=== PATIENT | female | born 1955 | race Caucasian/White ===

== ENCOUNTER 2022-09-17 07:33 | Inpatient (IN) | payer BC, SELFPAY ==
[2022-09-17] VITALS (26 sets, daily range): BP systolic 108–161; BP diastolic 71–111; PULSE 68–95; RESP 16–21; TEMP 36.6–37.7; O2SAT 87–100; BMI 27.9
--- NOTE | ~2022-09-17 | MR_ITS ---
EXAMINATION: MR lumbar spine wo/w con DATE: 09/18/2022 16:59 INDICATION: Back pain. Lumbar radiculopathy. TECHNIQUE: Magnetic resonance imaging (MRI) of the lumbar spine was performed without and with 15 mL MultiHance intravenous contrast. COMPARISON: Lumbar spine CT 09/17/2022 FINDINGS: Bone alignment is normal. Vertebral body heights are normal. There is mildly decreased disc height at L2-L3 and L3-L4, moderately decreased disc height at L4-L5, and mildly decreased disc heig ht at L5-S1. The distal spinal cord signal intensity is normal. The conus medullaris is at L1. The fo llowing disc levels are specifically discussed: L1-L2: The disc does not extend beyond the endplate margin. There is mild bilateral facet joint osteo arthritis. There is no neural foraminal stenosis. There is no central canal stenosis. L2-L3: The disc is bulging. There is mild bilateral facet joint osteoarthritis. There is mild bilater al neural foraminal stenosis. There is mild central canal stenosis. L3-L4: The disc is bulging. In the left lateral recess at the pedicular and interpedicular levels of L3, there is a 10 x 10 x 17 mm nonenhancing mass with mass effect on the exiting left L3 nerve root, likely a sequestered disc. There is mild bilateral facet joint osteoarthritis. There is mild bilatera l neural foraminal stenosis. There is mild central canal stenosis. There is severe stenosis of left l ateral recess at the left L3 infrapedicular level. L4-L5: The disc is bulging and has an annular fissure. There is severe right and moderate left facet joint osteoarthritis. There is mild bilateral neural foraminal stenosis. There is mild central canal stenosis. L5-S1: The disc is bulging and has an annular fissure. There is mild right and moderate left facet quintin int osteoarthritis. There is mild bilateral neural foraminal stenosis. There is mild central canal st enosis. IMPRESSION: 1. Mass in the left lateral recess at the L3 pedicular and infrapedicular levels with mass effect on the left L3 nerve root, likely a sequestered disc. 2. Moderate lumbar spondylosis. Reviewed, dictated and finalized at location E. R MANAGEMENT SPECIALIST IMPRESSION: 1. Mass in the left lateral recess at the L3 pedicular and infrapedicular level s with mass effect on the left L3 nerve root, likely a sequestered disc. 2. Moderate lumbar spondylosis.
--- NOTE | ~2022-09-17 | XR_ITS ---
EXAMINATION: XR femur LT min 2V DATE: 09/17/2022 08:53 INDICATION: Left thigh spasms and cramping. TECHNIQUE: 2 views of left femur on 4 radiographs were obtained. COMPARISON: None. FINDINGS: Bone alignment is normal. No fracture. There is mild left hip osteoarthritis. No knee joint effusion. IMPRESSION: 1. Mild left hip osteoarthritis. Reviewed, dictated and finalized at location A. CTOR OF SALES
--- NOTE | ~2022-09-17 | CT_ITS ---
EXAMINATION: CT lumbar spine wo con DATE: 09/17/2022 08:45 INDICATION: Low back pain. TECHNIQUE: Computed tomography (CT) of the lumbar spine was performed without intravenous contrast. A utomated exposure control and iterative reconstruction technique were employed. The dose-length produ ct was 698.03 mGy-cm. COMPARISON: None FINDINGS: Bone alignment is normal. Vertebral body heights are normal. There is mildly decreased disc height at L2-L3 and L3-L4, moderately decreased disc height at L4-L5, and mildly decreased disc heig ht at L5-S1. The following disc levels are specifically discussed: L1-L2: The disc does not extend beyond the endplate margin. There is mild bilateral facet joint osteo arthritis. There is no neural foraminal stenosis. There is no central canal stenosis. L2-L3: The disc is bulging. There is mild bilateral facet joint osteoarthritis. There is mild bilater al neural foraminal stenosis. There is mild central canal stenosis. L3-L4: The disc is bulging. There is moderate right and mild left facet joint osteoarthritis. There i s mild bilateral neural foraminal stenosis. There is mild central canal stenosis. L4-L5: The disc is bulging. There is severe right and moderate left facet joint osteoarthritis. There is mild bilateral neural foraminal stenosis. There is mild central canal stenosis. L5-S1: The disc is bulging. There is severe bilateral facet joint osteoarthritis. There is mild bilat eral neural foraminal stenosis. There is mild central canal stenosis. IMPRESSION: 1. Moderate lumbar spondylosis. Reviewed, dictated and finalized at location A. K JACK DEALER
--- NOTE | ~2022-09-17 | XR_ITS ---
EXAMINATION: XR fluoroscopy no charge DATE: 09/19/2022 13:31 INDICATION: Left L2-L3 herniated nucleus pulposus. TECHNIQUE: A single lateral intraoperative fluoroscopic view of the lumbar spine was obtained. I was not present. Fluoroscopy exposure time was 2 seconds. COMPARISON: Lumbar spine MRI 09/18/2022 FINDINGS: There is a probe overlying the posterior elements at L2-L3. There is moderate lumbar spondy losis. IMPRESSION: 1. Marker at L2-L3. Reviewed, dictated and finalized at location A. LCHAIR VAN OPERATOR FIRST RESPONDER IMPRESSION: 1. Marker at L2-L3.
[2022-09-17] MEDS: KETOROLAC 30 MG/ML VIAL (*BKC) IV PUSH (08:23)
[2022-09-17 08:30] LABS: Basophils Percent Auto 0.6 % (0.2-1.2); Eosinophils Percent Auto 0.4 % (0-4.4); Hematocrit 35.1 % (37.0-47.0); Hemoglobin 10.8 g/dL (12.0-15.0); Immature Granulocyte Absolute 0.01 K/mm3 (0.00-0.031); Immature Granulocyte Percent A 0.2 % (0-0.5); Lymphocytes Absolute Auto 0.91 K/mm3 (0.9-3.2); Lymphocytes Percent Auto 18.2 % (18.3-44.2); Mean Corpuscular HGB Conc 30.8 g/dl (32-36); Mean Corpuscular Hemoglobin 22.2 pg (26-34); Mean Corpuscular Volume 72.2 fl (80-100); Mean Platelet Volume 10.8 fl (7.4-10.4); Monocytes Absolute Auto 0.4 K/mm3 (0.1-0.6); Monocytes Percent Auto 7.2 % (2.6-8.5); Neutrophils Absolute Auto 3.7 K/mm3 (1.3-6.7); Neutrophils Percent Auto 73.4 % (45.5-73.1); Platelet Count Result 282 k/mm3 (150-375); Red Blood Count 4.86 M/mm3 (4.2-5.4); Red Cell Distribution Width 16.6 % (11.5-14.5)
[2022-09-17 08:41] LABS: Alanine Aminotransferase 18 U/L (6-35); Albumin Level 4.6 g/dL (3.5-5.1); Alkaline Phosphatase 100 U/L (38-126); Anion Gap 11 mmol/L (8-16); Aspartate Amino Transferase 33 U/L (14-36); Bilirubin,Total 0.7 mg/dL (0.2-1.3); Blood Urea Nitrogen 10 mg/dL (7-17); Calcium 9.4 mg/dL (8.4-10.2); Carbon Dioxide 22 mmol/L (22-30); Chloride 101 mmol/L (98-107); Creatine Kinase 193 U/L (30-135); Estimated CRCL calculation 75 ml/min; Estimated Glomerular Filt Rate > 60; Glucose 98 mg/dL (65-110); Sodium 134 mmol/L (137-145)
[2022-09-17] MEDS: diazePAM INJ (*CRX) 10 MG/2 ML SYRINGE 5 MG IV PUSH (09:46)
--- NOTE | 2022-09-17 11:13 | PC.NURSE ---
Patient report received from DANILO Whitaker. All questions answered and care of patient assumed.
[2022-09-17] MEDS: MORPHINE SULFATE (*CRX) 2 MG/ML INJ IV PUSH (11:43)
--- NOTE | 2022-09-17 12:10 | ED.GENADULT ---
HPI - General Adult General Chief complaint: Extremity Injury, Lower Stated complaint: Lower Extremity Pain Time Seen by Provider: 09/17/22 07:38 Source: RN notes reviewed History of Present Illness HPI narrative: Patient presents emergency department from home for left leg pain. Patient states symptoms began yesterday. States she noted pain in her left thigh that described as cramping in nature the pain radiates down her left leg as well as into her left buttocks. She states that no matter what she does she cannot get comfortable in the legs been in severe pain she states that she did take ajet-dly-slcejkf medication for the pain last night as well smokes marijuana at 2 AM she denies any trauma or injury she denies any history of back or leg pain she denies any fevers or chills abdominal pain nausea vomiting bowel or bladder incontinence numbness or weakness of the extremity or any other symptoms Related Data Home Medications Medication Instructions Recorded Confirmed amlodipine 5 mg tablet 5 mg PO BID 09/26/20 03/20/22 aspirin 81 mg chewable tablet 81 mg PO DAILY 09/26/20 03/20/22 (Inder Chewable Low Dose Aspirin) cyanocobalamin (vitamin B-12) 1,000 mcg PO DAILY 09/26/20 03/20/22 1,000 mcg tablet (Vitamin B-12) metoprolol tartrate 50 mg tablet 50 mg PO BID 09/26/20 03/20/22 multivitamin 1 tablet PO DAILY 09/26/20 03/20/22 sertraline 100 mg tablet 100 mg PO DAILY 09/26/20 03/20/22 ezetimibe 10 mg tablet 10 mg PO 03/20/22 03/20/22 Allergies Allergy/AdvReac Type Severity Reaction Status Date / Time No Known Allergies Allergy Unknown Verified 09/17/22 07:58 Review of Systems Review of Systems: Gen.: Denies fevers or chills ENT: Denies congestion Respiratory: Denies shortness of breath or cough CV: Denies chest pain or palpitations GI: Denies abdominal pain nausea, emesis or diarrhea denies incontinence Musculoskeletal: See HPI Neuro: Denies numbness, tingling, weakness or focal weakness Skin: Denies rash Except as documented, all other systems reviewed and negative PMFSH Past Medical History Medical History KO positive Anxiety Inflammatory arthritis Statin myopathy Surgical History Surgical History History of ankle surgery Family History Family History Mother Heart disease Father Brain aneurysm Social History Social History Smoking status: Former smoker Alcohol intake: current Exam Narrative: APPEARANCE: No acute distress, nontoxic, resting in bed Eyes: EOMI HEENT: Normocephalic, atraumatic, CV: Regular rate and rhythm without murmur RESPIRATORY: No respiratory distress. Clear to auscultation bilaterally. Abdomen: Soft and nontender, no rebound or guarding MUSCULOSKELETAl: Moves all extremities, no clubbing cyanosis or edema Back: No midline lumbar tenderness to palpation or step-off, no midline tenderness to palpation, tender to palpation over left piriformis NEURO: Awake and alert. Following commands, speech normal, no focal deficits, muscle strength 5 out of 5 bilateral lower extremities, bilateral patellar reflex 2+ SKIN:: Warm, dry. Normal Color no rash or lesions Course Course Emergency Course: Patient initially given Toradol if continued pain then given Valium and the morphine continues to have pain in the left leg. Patient attempted to get up and ambulate was only able to take a few steps and then had to stop secondary to pain will admit at this time To Dr Elder presentation work-up agrees with admission to hospitalist service Discussed with Dr. Carbajal agrees with consult Discussed with patient and family results of workup and diagnosis. Discussed need for admission. Patient and family understand and agree to current treatment
--- NOTE | 2022-09-17 13:07 | ADMGEN ---
This patient, Belen Chapman, was admitted to 2 Medical Room 240-01. Patient/family oriented to hospital policies and general routines including ID bracelet, bed and alarms, visiting hours, pain management, procedures, bathroom and other care routines, personal items, smoking policy, room service/diet, and visiting hours. Information on how to activate the Rapid Response Team has been discussed. Patient/Family are encouraged to report perceived risks to care and to ask questions if they do not understand what they are told or what they should do.
[2022-09-17 13:32] LABS: Influenza A QL RT-PCR Negative (Negative); Influenza B QL RT-PCR Negative (Negative); SARS-CoV-2 RNA PCR Negative
[2022-09-17] MEDS: oxyCODONE/ACETAMINOPHEN (*CRX) 5-325 MG TABLET 1 TABLET PO ×2 (14:37→20:13)
--- NOTE | 2022-09-17 16:42 | PM.IMHP ---
H&P: HPI History of Present Illness Date/Time: 09/17/22 16:42 Chief Complaint: L Thigh pain Narrative: Pt states she is having severe left leg pain worse in her thigh radiating to her left buttock worse when she walks, pt denies any fall or trauma or twisting Pt states she has been quite sedentary. Pt tried OTC without any help severe spasms in the left thigh Review of Systems Review of Systems: severe spasms in L thigh radiates to L buttock PMFSH Past Medical History Medical History KO positive Anxiety Inflammatory arthritis Statin myopathy Surgical History Surgical History History of ankle surgery Family History Family History Mother Heart disease Father Brain aneurysm Social History Social History Smoking packs per day: 0.25 Smoking cigarettes per day: 5.0 Smoking status: Current every day smoker Tobacco type: cigarettes Alcohol intake: former Substance use type: marijuana Other substance usage details: gummies and smoking Last use: 09/17/22 Lack of Transportation: No Lack of Food: Never True Current Housing: I Have Housing Concerned About Future Housing: No Difficulty Paying Gas/Electric Bills: No Difficulty Paying for Meds: No Currently Unemployed: No Education: High School Diploma/GED Difficulty w/ Childcare or Family Care: No Spiritual care concerns: No Meds Home Medications and Allergies Home Medications Medication Instructions Recorded Confirmed Type amlodipine 5 mg tablet 5 mg PO BID 09/26/20 09/17/22 History aspirin 81 mg chewable tablet 81 mg PO DAILY 09/26/20 09/17/22 History (Inder Chewable Low Dose Aspirin) metoprolol tartrate 50 mg tablet 50 mg PO BID 09/26/20 09/17/22 History sertraline 100 mg tablet 100 mg PO DAILY 09/26/20 09/17/22 History cholecalciferol (vitamin D3) 50 50 mcg PO DAILY 09/17/22 09/17/22 History mcg (2,000 unit) capsule (Vitamin D3) Allergies Allergy/AdvReac Type Severity Reaction Status Date / Time Vhgcmzx-VYV-[id number] Reductase AdvReac Weakness Verified 09/17/22 13:13 Inhibitor Vital Signs Vital Signs - 24 hr 09/17/22 07:37 09/17/22 07:44 09/17/22 07:45 Temperature 36.9 C Pulse Rate 84 Respiratory Rate 21 H Blood Pressure 140/89 Pulse Oximetry 100 100 100 Oxygen Delivery Room Air 09/17/22 08:17 09/17/22 08:30 09/17/22 08:31 Temperature Pulse Rate 78 Respiratory Rate Blood Pressure 161/94 H Pulse Oximetry 100 99 98 Oxygen Delivery 09/17/22 08:32 09/17/22 08:54 09/17/22 09:07 Temperature Pulse Rate Respiratory Rate Blood Pressure Pulse Oximetry 100 100 99 Oxygen Delivery 09/17/22 09:15 09/17/22 09:16 09/17/22 09:31 Temperature Pulse Rate Respiratory Rate Blood Pressure 151/102 H Pulse Oximetry 93 100 87 L Oxygen Delivery 09/17/22 09:32 09/17/22 09:33 09/17/22 10:34 Temperature Pulse Rate 81 Respiratory Rate Blood Pressure 108/74 136/71 Pulse Oximetry 94 100 97 Oxygen Delivery 09/17/22 10:46 09/17/22 10:47 09/17/22 11:35 Temperature Pulse Rate Respiratory Rate Blood Pressure 157/85 H Pulse Oximetry 100 96 100 Oxygen Delivery 09/17/22 11:38 09/17/22 11:45 09/17/22 12:21 Temperature Pulse Rate 95 Respiratory Rate 19 Blood Pressure 147/111 H Pulse Oximetry 98 100 100 Oxygen Delivery 09/17/22 12:30 09/17/22 12:31 09/17/22 16:14 Temperature 37.7 C H Pulse Rate 78 Respiratory Rate 18 Blood Pressure 160/84 H 125/80 Pulse Oximetry 100 100 99 Oxygen Delivery H&P: Results Labs Labs: Short CBC 09/17/22 Range/Units 08:09 WBC 5.0 (4.5-10.0) K/mm3 Hgb 10.8 L (12.0-15
--- NOTE | 2022-09-17 17:16 | WPDNEUROSGCN ---
Assessment and Plan Assessment and plan (1) Lumbar spondylosis: Code(s): M47.816 - Spondylosis without myelopathy or radiculopathy, lumbar region Status: Acute (2) Foraminal stenosis of lumbosacral region: Code(s): M48.07 - Spinal stenosis, lumbosacral region Status: Acute (3) Radicular pain of left lower extremity: Code(s): M54.10 - Radiculopathy, site unspecified Status: Acute Plan Ms. Chapman is a 66-year-old female with back and left lower extremity pain that seems to be radiculopathy and may be related to a nerve pinched in her back, perhaps L5 or S1. It could also be L4. The CT scan is insufficient to examine the soft tissues with enough detail to determine the cause of the radiculopathy or any potential compression on any of these nerves. Therefore recommend an MRI of the lumbar spine to better evaluate this problem. We will order that and make further recommendations after I have seen it. Decadron could be helpful in the meantime to try to reduce inflammation in the nerve and potentially mitigate her symptoms. Physical and occupational therapy should be involved in her care. If she there is a simple decompressive surgery to confidently recommend to her that we may do at this admission if she cannot be made ambulatory with relative pain control. Review of Systems Review of Systems: Patient denies shortness of breath, cough, fever, chills, nausea, vomiting, weight loss, weight gain, chest pain, dysuria. She has back and leg pain as above. She has myalgias and arthralgias. Review of systems is otherwise negative except as noted elsewhere on 12 systems. [facility] Past Medical History Medical History KO positive Anxiety Inflammatory arthritis Statin myopathy Surgical History Surgical History History of ankle surgery Family History Family History Mother Heart disease Father Brain aneurysm Social History Social History Smoking packs per day: 0.25 Smoking cigarettes per day: 5.0 Smoking status: Current every day smoker Tobacco type: cigarettes Alcohol intake: former Substance use type: marijuana Other substance usage details: gummies and smoking Last use: 09/17/22 Lack of Transportation: No Lack of Food: Never True Current Housing: I Have Housing Concerned About Future Housing: No Difficulty Paying Gas/Electric Bills: No Difficulty Paying for Meds: No Currently Unemployed: No Education: High School Diploma/GED Difficulty w/ Childcare or Family Care: No Spiritual care concerns: No Meds Home Medications and Allergies Home Medications Medication Instructions Recorded Confirmed Type amlodipine 5 mg tablet 5 mg PO BID 09/26/20 09/17/22 History aspirin 81 mg chewable tablet 81 mg PO DAILY 09/26/20 09/17/22 History (Inder Chewable Low Dose Aspirin) metoprolol tartrate 50 mg tablet 50 mg PO BID 09/26/20 09/17/22 History sertraline 100 mg tablet 100 mg PO DAILY 09/26/20 09/17/22 History cholecalciferol (vitamin D3) 50 50 mcg PO DAILY 09/17/22 09/17/22 History mcg (2,000 unit) capsule (Vitamin D3) Allergies Allergy/AdvReac Type Severity Reaction Status Date / Time [id number]-ICA-[id number] Reductase AdvReac Weakness Verified 09/17/22 13:13 Inhibitor Vital Signs Vital Signs - 24 hr 09/17/22 07:37 09/17/22 07:44 09/17/22 07:45 Temperature 98.5 F Pulse Rate 84 Respiratory Rate 21 H Blood Pressure 140/89 Pulse Oximetry 100 100 100 Oxygen Delivery Room Air 09/17/22 08:17 09/17/22 08:30 09/17/22 08:31 Temperature Pulse Rate 78 Respiratory Rate Blood Pressure 161/94 H Pulse Oximetry 100 99 98 Oxygen Delivery 09/17/22 08:32 09/17/22 08:54 09/17/22
[2022-09-17] MEDS: DICLOFENAC SODIUM 1% 100 GM GEL (*BKC) 1 APPLIC TOPICAL ×2 (17:53→20:15)
[2022-09-17] MEDS: amLODIPine BESYLATE 5 MG TABLET PO (17:53)
[2022-09-17] MEDS: CYCLOBENZAPRINE HCL 5 MG TABLET PO (17:54)
[2022-09-17] MEDS: METOPROLOL TARTRATE 50 MG TAB PO (20:13)
[2022-09-18] MEDS: CYCLOBENZAPRINE HCL 5 MG TABLET PO ×3 (01:34→21:06)
[2022-09-18] MEDS: ALPRAZolam (*CRX) 0.25 MG TABLET PO ×2 (01:35→16:12)
[2022-09-18] MEDS: oxyCODONE/ACETAMINOPHEN (*CRX) 5-325 MG TABLET 1 TABLET PO ×3 (04:20→21:04)
[2022-09-18 06:49] VITALS: BP 140/68; PULSE 72; RESP 16; TEMP 37.1; O2SAT 100
[2022-09-18 08:03] VITALS: PULSE 64
[2022-09-18] MEDS: METOPROLOL TARTRATE 50 MG TAB PO ×2 (08:03→21:05)
[2022-09-18] MEDS: ASPIRIN 81 MG CHEWABLE TABLET PO (08:03)
[2022-09-18] MEDS: SERTRALINE HCL 50 MG TABLET 100 MG PO (08:03)
[2022-09-18] MEDS: amLODIPine BESYLATE 5 MG TABLET PO ×2 (08:03→17:03)
[2022-09-18] MEDS: DICLOFENAC SODIUM 1% 100 GM GEL (*BKC) 1 APPLIC TOPICAL ×4 (08:03→21:06)
[2022-09-18] MEDS: CHOLECALCIFEROL 1,000 UNITS TABLET 2000 UNITS PO (08:03)
[2022-09-18] MEDS: ENOXAPARIN 40 MG/0.4 ML SYRINGE SUB-Q (08:04)
[2022-09-18 08:06] LABS: CRP 5.5 mg/dL (<1.0)
[2022-09-18 08:11] LABS: Erythrocyte Sedimentation Rate 98 mm/hr (0-20)
--- NOTE | 2022-09-18 14:19 | PM.IMPN ---
Progress Note: A&P Assessment and Plan (1) Intractable low back pain: Code(s): M54.59 - Other low back pain Status: Acute Assessment and Plan: pt needs to stretch her back gently having alot o f spasms in her left thigh preventing her to stretch her leg and walk On Flexeril oxycodone. Will initiate steroid therapy with Decadron 4 mg q.8 hour Order PT OT to evaluate CT lumbar spine reviewed. Disc bulge noted from L2 to S1. Bilateral facet joint osteoarthritis [id number] to mild bilateral neuroforaminal stenosis in multiple levels with mild central canal stenosis. Neurosurgery consulted. Will further evaluate with MRI lumbar spine. Suspected lumbar radiculopathy which is intractable with muscle spasms (2) Thigh pain: Code(s): M79.659 - Pain in unspecified thigh Status: Acute Assessment and Plan: volteren gel, flexeril and oral percocet and xanax Plan dvt prop lovenox pt has history of lalo positive and anxiety will order esr crp to exclude myopathy ESR CRP came back elevated pt has low grade fever continue to watch maybe due to pain sympathetic response continue to watch Mild anemia no signs of bleeding Mildly elevated CK and 193 Mild left hip osteoarthritis Subjective Date/time seen: 09/18/22 14:19 Interval history: No overnight events. Reports ongoing spasms the left thigh and hip area which are severe prohibiting ambulation Review of Systems Review of Systems: All systems reviewed & are unremarkable except as noted in HPI and below Exam Narrative: APPEARANCE:? No acute distress, nontoxic, resting in bed Eyes: EOMI HEENT: Normocephalic, atraumatic, CV: Regular rate and rhythm without murmur RESPIRATORY: No respiratory distress.? Clear to auscultation bilaterally.? Abdomen: Soft and nontender, no rebound or guarding MUSCULOSKELETAl: Moves all extremities, no clubbing cyanosis or edema Back: Left paraspinal lumbar area tenderness noted. Straight leg raise test negative intermittent muscle spasm during the visit NEURO: Awake and alert. Following commands, speech normal, no focal deficits,? muscle strength 5 out of 5 bilateral lower extremities, bilateral patellar reflex 2+ SKIN:: Warm, dry. Normal Color no rash or lesions Objective Data Vital Signs Vital Signs: Vital Signs - 24 hr 09/17/22 16:14 09/17/22 20:00 09/17/22 23:23 Temperature 99.8 F H 97.8 F Pulse Rate 78 78 68 Respiratory Rate 18 18 16 Blood Pressure 125/80 129/76 Pulse Oximetry 99 99 94 Oxygen Delivery Room Air 09/18/22 06:49 09/18/22 08:03 09/18/22 08:04 Temperature 98.8 F Pulse Rate 72 64 Respiratory Rate 16 Blood Pressure 140/68 Pulse Oximetry 100 Oxygen Delivery Room Air Intake/Output Intake/Output: Intake & Output 09/15/22 09/16/22 09/17/22 09/18/22 23:59 23:59 23:59 23:59 Intake Total 600 Output Total 200 Balance 400 Meds/Results Medications: Active Medications Generic Name Dose Route Start Last Admin Trade Name Freq PRN Reason Stop Dose Admin Alprazolam 0.25 mg 09/17/22 16:57 09/18/22 01:35 Alprazolam (*Crx) 0.25 Mg Tablet PO 0.25 mg TID PRN Administration Anxiety Amlodipine Besylate 5 mg 09/17/22 17:00 09/18/22 08:03 Amlodipine Besylate 5 Mg Tablet PO 5 mg BID BRIJESH Administration Aspirin 81 mg 09/18/22 09:00 09/18/22 08:03 Aspirin 81 Mg Chewable Tablet PO 81 mg DAILY BRIJESH Administration Calcium Carbonate 200 mg 09/18/22 12:32 Calcium Carbonate (Tums) 500 Mg (200 Mg Elemental) PO Q6H PRN Indigestion Cyclobenzaprine HCl 5 mg 09/17/22 16:58 09/18/22 11:00 Cyclobenzaprine Hcl 5 Mg Tablet PO 5 mg Q8H PRN Administration Muscle Spasm Diclofenac Sodium 1 applic 09/17/22 17:00 09/18/22 12:44 Diclofenac Sodium 1% 100 Gm Gel (*Bkc) TOPICAL 1 applic QID BRIJESH Administration Enoxaparin Sodium 40 mg 09/18/22 09:00 09/18/22 08:04 Enoxaparin 40 Mg/0.4 Ml Syringe
[2022-09-18 15:19] VITALS: BP 125/54; PULSE 72; RESP 18; TEMP 36.7; O2SAT 98
[2022-09-18] MEDS: DEXAMETHASONE 4 MG TABLET PO ×2 (16:12→21:05)
[2022-09-18 20:02] VITALS: BP 119/72; PULSE 82; RESP 16; TEMP 36.7; O2SAT 99
[2022-09-18 21:05] VITALS: PULSE 83
[2022-09-19] VITALS (17 sets, daily range): BP systolic 107–146; BP diastolic 53–88; PULSE 4–86; RESP 12–20; TEMP 36.2–36.9; O2SAT 97–100
[2022-09-19] MEDS: oxyCODONE/ACETAMINOPHEN (*CRX) 5-325 MG TABLET 1 TABLET PO (05:15)
[2022-09-19] MEDS: DEXAMETHASONE 4 MG TABLET PO ×2 (05:16→21:16)
[2022-09-19 05:40] LABS: Basophils Percent Auto 0.2 % (0.2-1.2); Hematocrit 33.6 % (37.0-47.0); Hemoglobin 10.6 g/dL (12.0-15.0); Immature Granulocyte Absolute 0.02 K/mm3 (0.00-0.031); Immature Granulocyte Percent A 0.4 % (0-0.5); Lymphocytes Absolute Auto 0.67 K/mm3 (0.9-3.2); Lymphocytes Percent Auto 13.3 % (18.3-44.2); Mean Corpuscular HGB Conc 31.5 g/dl (32-36); Mean Corpuscular Hemoglobin 22.2 pg (26-34); Mean Corpuscular Volume 70.4 fl (80-100); Mean Platelet Volume 10.3 fl (7.4-10.4); Monocytes Absolute Auto 0.2 K/mm3 (0.1-0.6); Monocytes Percent Auto 4.8 % (2.6-8.5); Neutrophils Absolute Auto 4.1 K/mm3 (1.3-6.7); Neutrophils Percent Auto 81.3 % (45.5-73.1); Platelet Count Result 225 k/mm3 (150-375); Red Blood Count 4.77 M/mm3 (4.2-5.4); Red Cell Distribution Width 16.5 % (11.5-14.5); White Blood Count 5.1 K/mm3 (4.5-10.0)
[2022-09-19 05:56] LABS: Alanine Aminotransferase 18 U/L (6-35); Albumin Level 4.5 g/dL (3.5-5.1); Alkaline Phosphatase 90 U/L (38-126); Anion Gap 11 mmol/L (8-16); Aspartate Amino Transferase 25 U/L (14-36); Bilirubin,Total 0.5 mg/dL (0.2-1.3); Blood Urea Nitrogen 11 mg/dL (7-17); Calcium 9.5 mg/dL (8.4-10.2); Carbon Dioxide 21 mmol/L (22-30); Chloride 101 mmol/L (98-107); Estimated CRCL calculation 85 ml/min; Estimated Glomerular Filt Rate > 60; Glucose 115 mg/dL (65-110); Magnesium 2.1 mg/dL (1.6-2.3); Potassium 4.1 mmol/L (3.4-5.0); Sodium 133 mmol/L (137-145)
[2022-09-19 06:53] LABS: Microcytosis 1+ (NORMAL); Platelet Estimate Adequate (Adequate); Schistocytes None Seen (NORMAL)
[2022-09-19] MEDS: amLODIPine BESYLATE 5 MG TABLET PO ×2 (09:31→17:37)
[2022-09-19] MEDS: METOPROLOL TARTRATE 50 MG TAB PO ×2 (09:31→21:16)
[2022-09-19] MEDS: DICLOFENAC SODIUM 1% 100 GM GEL (*BKC) 1 APPLIC TOPICAL ×2 (09:32→21:16)
--- NOTE | 2022-09-19 10:30 | PC.NURSE ---
To OR per ashleigh IV right hand. Report given to Elliott CARRASCO.
--- NOTE | 2022-09-19 10:47 | WPDANESEPPF ---
Anes - Initial Pre Proc Eval Procedure: Operation Date: 09/19/22 15:00 Proposed Procedures p L2-3 Lumbar Microdiscectomy - Jesus Carbajal MD Date/Time: 09/19/22 10:47 Surgeon: Franca Elder MD Pre Op Diagnosis: Intractable Back Pain Patient Data Age: 66 Gender: F Height: 1.68 m Weight: 78.6 kg Last Vital Signs Temp 36.6 C 09/19/22 10:43 Pulse 71 09/19/22 10:43 Resp 16 09/19/22 10:43 BP 146/72 H 09/19/22 10:43 Pulse Ox 100 09/19/22 10:43 O2 Del Method Room Air 09/19/22 10:43 Allergies Allergy/AdvReac Type Severity Reaction Status Date / Time Eleevjg-YFV-[id number] Reductase AdvReac Weakness Verified 09/17/22 13:13 Inhibitor Home Medications Medication Instructions Recorded Confirmed Type amlodipine 5 mg tablet 5 mg PO BID 09/26/20 09/17/22 History aspirin 81 mg chewable tablet 81 mg PO DAILY 09/26/20 09/17/22 History (Inder Chewable Low Dose Aspirin) metoprolol tartrate 50 mg tablet 50 mg PO BID 09/26/20 09/17/22 History sertraline 100 mg tablet 100 mg PO DAILY 09/26/20 09/17/22 History cholecalciferol (vitamin D3) 50 50 mcg PO DAILY 09/17/22 09/17/22 History mcg (2,000 unit) capsule (Vitamin D3) Laboratory Tests 09/19/22 09/19/22 05:11 05:11 WBC 5.1 K/mm3 K/mm3 (4.5-10.0) RBC 4.77 M/mm3 M/mm3 (4.2-5.4) Hgb 10.6 g/dL L g/dL (12.0-15.0) Hct 33.6 % L % (37.0-47.0) MCV 70.4 fl L fl (80-100) MCH 22.2 pg L pg (26-34) MCHC 31.5 g/dl L g/dl (32-36) RDW 16.5 % H % (11.5-14.5) Plt Count 225 k/mm3 k/mm3 (150-375) MPV 10.3 fl fl (7.4-10.4) Immature Gran % (Auto) 0.4 % % (0-0.5) Neut % (Auto) 81.3 % H % (45.5-73.1) Lymph % (Auto) 13.3 % L % (18.3-44.2) [place] % (Auto) 4.8 % % (2.6-8.5) Eos % (Auto) 0.0 % % (0-4.4) Baso % (Auto) 0.2 % % (0.2-1.2) Lymph # (Auto) 0.67 K/mm3 L K/mm3 (0.9-3.2) [place] # (Auto) 0.2 K/mm3 K/mm3 (0.1-0.6) Eos # (Auto) 0.0 K/mm3 K/mm3 (0-0.3) Baso # (Auto) 0.0 K/mm3 K/mm3 (0.0-0.1) Abs Immat Gran (auto) 0.02 K/mm3 K/mm3 (0.00-0.031) Absolute Neuts (auto) 4.1 K/mm3 K/mm3 (1.3-6.7) Absolute Nucleated RBC 0.0 K/mm3 K/mm3 (0.0-0.012) Nucleated RBC % 0.0 % % (0.0-0.2) Platelet Estimate Adequate (Adequate) Microcytosis 1+ (NORMAL) Schistocytes None seen (NORMAL) Sodium 133 mmol/L L mmol/L (137-145) Potassium 4.1 mmol/L mmol/L (3.4-5.0) Chloride 101 mmol/L mmol/L (98-107) Carbon Dioxide 21 mmol/L L mmol/L (22-30) Anion Gap 11 mmol/L mmol/L (8-16) BUN 11 mg/dL mg/dL (7-17) Creatinine 0.60 mg/dL L mg/dL (0.7-1.0) Estim Creat Clear Calc 85 ml/min ml/min Estimated GFR > 60 (59 - ) Glucose 115 mg/dL H mg/dL (65-110) Calcium 9.5 mg/dL mg/dL (8.4-10.2) Magnesium 2.1 mg/dL mg/dL (1.6-2.3) Total Bilirubin 0.5 mg/dL mg/dL (0.2-1.3) AST 25 U/L U/L (14-36) ALT 18 U/L U/L (6-35) Alkaline Phosphatase 90 U/L U/L (38-126) Total Protein 8.0 g/dL g/dL (6.3-8.2) Albumin 4.5 g/dL g/dL (3.5-5.1) Patient hx anesthesia problems: none Family hx anesthesia problems: none Results Review: All pre-operative results and documents have been reviewed as part of the pre-operative evaluation. [facility] Past Medical History Medical History KO positive Anxiety Inflammatory arthritis Statin myopathy Surgical History Surgical History History of ankle surgery Family History Family History Mother Heart disease Father Brain aneurysm Social History Social History (Reviewed 09/19/22 @ 10
[2022-09-19] MEDS: LACTATED RINGERS 1,000 ML 30 ML IV CONT (10:48)
--- NOTE | 2022-09-19 10:51 | WPDHPUPDATE1 ---
History and Physical Update Update Date/Time: 09/19/22 10:51 We will proceed with a left L2-3 microscopic lumbar diskectomy as previously discussed. This is apparent on the MRI and accounts for the patient's left lower extremity pain. I described to her that operation, its risks, potential benefits, the operative and postoperative course in detail and answered all her questions personally. We discussed risks including but not limited to permanent neurologic deficit secondary to nerve root injury, need for reoperation secondary to infection, bleeding, CSF leak, adjacent level disease, recurrent or residual pathology or instability, failure of the procedure to relieve her pain or symptoms, persistent pain, medical complications related to anesthesia or surgery, etc.. She indicates understanding and elects to proceed with that operation. History and Physical has been reviewed, including an updated exam of the patient. There are NO changes in the patient's condition. Risks, benefits, and alternatives have been discussed and questions answered. Patient agrees to proceed with procedure.
--- NOTE | 2022-09-19 10:53 | PCOTNOTE ---
Patient is currently off the unit for surgery, will follow and attempt at later time after surgery.
[2022-09-19] MEDS: ceFAZolin 2 GM/D5W 50 ML 2 GM/50 ML BAG IVPB (11:29)
--- NOTE | 2022-09-19 12:56 | W.PM.PROC2 ---
Procedure Note - Detailed Date of Procedure 09/19/22 Pre-op Diagnosis Left L2-3 herniated nucleus pulposus Post-op Diagnosis Same Procedure Performed Left L2-3 microscopic lumbar diskectomy Surgeon Jesus Carbajal MD Cylinder Inspector Caroline Anesthesia General Indications Belen is a 66-year-old female with a left sided radiculopathy related to herniated disc at L2-3 who presents for microdiskectomy. Description of Procedure The patient was brought to the operating room in the supine position, was sedated, intubated and placed under general anesthesia in routine fashion. She was then turned into the prone position on a Bradley frame. The area of operation on her back was examined, marked for incision, prepped and draped in routine sterile fashion. Incision was marked over the L2 and L3 spinous processes in the midline. This area was injected with 0.5% lidocaine with [id number] epinephrine. Intravenous antibiotics given prior to incision. Incision was made with a 10 blade scalpel down to the lumbodorsal fascia. A subperiosteal dissection of the muscle soft tissue weight spinous process and lamina at L2-3 on the left was performed with a subperiosteal elevator and Bovie cautery. A verifying x-rays obtained to verify the level of operation. Midas-Edward drill was used to perform a hemilaminectomy and medial facetectomy at L2-3. Under microscopy the yellow ligament was lifted and removed piecemeal using Kerrison punches. This was carried down into the L3 lamina as the fragment was caudally migrated. With the thecal sac retracted a nerve hook was used to tease free pieces of herniated disc from beneath the nerve and removed with a Orozco rongeur. This was done several times and in the axilla as well until a dental instrument could be placed in the ventral epidural space and above and below the nerve root out the foramen to confirm microdecompression. The wound was then copiously irrigated with bacitracin irrigation all bleeding was stopped bipolar and Bovie cautery and Gelfoam thrombin powder. Wound was then closed in layered fashion with 2-0 Vicryl interrupted sutures in the lumbodorsal fascia and Nolvia's layer. 3-0 Vicryl buried interrupted sutures were placed in the dermis and the skin was closed with a running 4-0 Monocryl subcuticular stitch and dressed with Dermabond. The patient was then allowed to wake up in the operating room and was taken to the recovery room in stable condition. There were no immediate complications of this operation. Counts were reported correct at the end of the case. Blood loss was 10 cc. The patient was neurologically at her baseline postoperatively. CPT codes: 57629 Estimated Blood Loss 10 IV Fluids 1,000 Complications None Condition Stable Disposition PACU [facility] Billing Surgery - Charge Forward: Surgery Billing
--- NOTE | 2022-09-19 14:04 | PCOTNOTE ---
Attempted OT evaluation, patient is currently off the unit for surgery, will follow.
--- NOTE | 2022-09-19 14:22 | PC.NURSE ---
Returned from OR per stretcher . Report received from [place] CARRASCO.
[2022-09-19] MEDS: KCL 20 MEQ/D5/0.45% SOD CHL 1,000 ML 100 ML IV CONT (14:49)
--- NOTE | 2022-09-19 17:04 | PM.IMPN ---
Progress Note: A&P Assessment and Plan (1) Intractable low back pain: Code(s): M54.59 - Other low back pain Status: Acute Assessment and Plan: pt needs to stretch her back gently having alot o f spasms in her left thigh preventing her to stretch her leg and walk On Flexeril oxycodone. Started on steroid therapy with Decadron 4 mg q.8 hour Order PT OT to evaluate CT lumbar spine reviewed. Disc bulge noted from L2 to S1. Bilateral facet joint osteoarthritis [id number] to mild bilateral neuroforaminal stenosis in multiple levels with mild central canal stenosis. Neurosurgery consulted. MRI lumbar spine:Mass in the left lateral recess at the L3 pedicular and infrapedicular levels with mass effect on the left L3 nerve root, likely a sequestered disc. 2. Moderate lumbar spondylosis Underwent left L2 2 3 microscopic lumbar diskectomy Will continue PT OT (2) Thigh pain: Code(s): M79.659 - Pain in unspecified thigh Status: Acute Assessment and Plan: volteren gel, flexeril and oral percocet and xanax Plan dvt prop lovenox pt has history of lalo positive and anxiety will order esr crp to exclude myopathy ESR CRP came back elevated pt has low grade fever continue to watch maybe due to pain sympathetic response continue to watch Mild anemia no signs of bleeding Mildly elevated CK and 193 Mild left hip osteoarthritis Subjective Date/time seen: 09/19/22 17:04 Interval history: Patient seen post surgery. Pain is controlled. Denies any new complaint. No chest pain or shortness of breath. Review of Systems Review of Systems: All systems reviewed & are unremarkable except as noted in HPI and below Exam Narrative: APPEARANCE:? No acute distress, nontoxic, resting in bed Eyes: EOMI HEENT: Normocephalic, atraumatic, CV: Regular rate and rhythm without murmur RESPIRATORY: No respiratory distress.? Clear to auscultation bilaterally.? Abdomen: Soft and nontender, no rebound or guarding MUSCULOSKELETAl: Moves all extremities, no clubbing cyanosis or edema SKIN:: Warm, dry. Normal Color no rash or lesions Objective Data Vital Signs Vital Signs: Vital Signs - 24 hr 09/18/22 20:02 09/18/22 21:05 09/18/22 20:00 Temperature 98.1 F Pulse Rate 82 83 Respiratory Rate 16 Blood Pressure 119/72 Pulse Oximetry 99 Oxygen Delivery Room Air Oxygen Flow Rate 09/19/22 05:24 09/19/22 09:29 09/19/22 09:31 Temperature 97.7 F Pulse Rate 86 77 77 Respiratory Rate 16 Blood Pressure 135/74 146/58 H Pulse Oximetry 100 100 Oxygen Delivery Oxygen Flow Rate 09/19/22 09:30 09/19/22 10:43 09/19/22 13:22 Temperature 97.8 F 97.1 F L Pulse Rate 71 70 Respiratory Rate 16 14 Blood Pressure 146/72 H 133/73 Pulse Oximetry 100 100 100 Oxygen Delivery Room Air Room Air Simple Face Mask Oxygen Flow Rate 8 09/19/22 13:35 09/19/22 13:15 09/19/22 13:50 Temperature Pulse Rate 70 70 67 Respiratory Rate 12 12 13 Blood Pressure 109/53 L 137/74 134/77 Pulse Oximetry 100 100 97 Oxygen Delivery Room Air Simple Face Mask Room Air Oxygen Flow Rate 8 09/19/22 14:15 09/19/22 14:30 09/19/22 15:00 Temperature 97.9 F 98.0 F 97.8 F Pulse Rate 71 69 74 Respiratory Rate 16 18 18 Blood Pressure 115/64 107/88 131/72 Pulse Oximetry 100 100 100 Oxygen Delivery Oxygen Flow Rate 09/19/22 14:30 09/19/22 15:44 09/19/22 16:00 Temperature 98.0 F Pulse Rate 73 Respiratory Rate 18 Blood Pressure 116/83 Pulse Oximetry 100 Oxygen Delivery Room Air Room Air Oxygen Flow Rate Intake/Output Intake/Output: Intake & Output 09/16/22 09/17/22 09/18/22 09/19/22 23:59 23:59 23:59 23:59 Intake Total 1190 2500 Output Total 200 Balance 990 2500 Meds/Results Medications: Active Medications Generic Name Dose Route Start Last Admin Trade Name Freq PRN Reason Stop Dose Admin Hydrocodone Bitart/Acetaminophen 1 tab 09/19/22 14:03 Hy
[2022-09-19] MEDS: HYDROcodone/acetaminophen (*CRX) 5-325 MG TABLET 1 TAB PO (17:39)
[2022-09-19] MEDS: DOCUSATE SODIUM 100 MG CAPSULE PO (21:16)
[2022-09-20] VITALS (7 sets, daily range): BP systolic 125–169; BP diastolic 63–72; PULSE 64–78; RESP 16–20; TEMP 35.9–37.1; O2SAT 98–100
[2022-09-20] MEDS: DEXAMETHASONE 4 MG TABLET PO ×3 (05:09→22:21)
[2022-09-20] MEDS: CHOLECALCIFEROL 1,000 UNITS TABLET 2000 UNITS PO (09:03)
[2022-09-20] MEDS: amLODIPine BESYLATE 5 MG TABLET PO ×2 (09:03→17:29)
[2022-09-20] MEDS: SERTRALINE HCL 50 MG TABLET 100 MG PO (09:03)
[2022-09-20] MEDS: ALPRAZolam (*CRX) 0.25 MG TABLET PO (09:05)
[2022-09-20] MEDS: DICLOFENAC SODIUM 1% 100 GM GEL (*BKC) 1 APPLIC TOPICAL ×2 (09:05→20:10)
[2022-09-20] MEDS: METOPROLOL TARTRATE 50 MG TAB PO ×2 (10:50→20:10)
--- NOTE | 2022-09-20 11:08 | WPDANESPN ---
Anes - Prog Note Post-Op Date/Time: 09/20/22 11:08 Cardiovascular status: normal Respiratory status: normal Airway patency: baseline Mental status: baseline Post-Op hydration status: normal Vital Signs: Last Vital Signs Temp 36.6 C 09/20/22 03:11 Pulse 78 09/20/22 10:50 Resp 20 09/20/22 03:11 BP 125/72 09/20/22 03:11 Pulse Ox 100 09/20/22 03:11 O2 Del Method Room Air 09/20/22 08:00 O2 Flow Rate 8 09/19/22 13:22 Pain Score (VAS): 0 I/O: Intake & Output 09/19/22 09/20/22 09/20/22 23:59 07:59 15:59 Intake Total 740 490 120 Output Total 975 500 Balance -235 -10 120 Laboratory Tests 09/19/22 05:11 09/19/22 05:11 Post-procedural complaints: none Patient Feedback: Patient satisfied with anesthetic care.
--- NOTE | 2022-09-20 13:19 | PM.IMPN ---
Progress Note: A&P Assessment and Plan (1) Intractable low back pain: Code(s): M54.59 - Other low back pain Status: Acute Assessment and Plan: pt needs to stretch her back gently having alot o f spasms in her left thigh preventing her to stretch her leg and walk On Flexeril oxycodone. Started on steroid therapy with Decadron 4 mg q.8 hour Order PT OT to evaluate CT lumbar spine reviewed. Disc bulge noted from L2 to S1. Bilateral facet joint osteoarthritis [id number] to mild bilateral neuroforaminal stenosis in multiple levels with mild central canal stenosis. Neurosurgery consulted. MRI lumbar spine:Mass in the left lateral recess at the L3 pedicular and infrapedicular levels with mass effect on the left L3 nerve root, likely a sequestered disc. 2. Moderate lumbar spondylosis Status post left L2 2 3 microscopic lumbar diskectomy 09/19/2022 PT OT evaluated cleared Awaiting Neurosurgery recommendation (2) Thigh pain: Code(s): M79.659 - Pain in unspecified thigh Status: Acute Assessment and Plan: volteren gel, flexeril and oral percocet and xanax Plan dvt prop lovenox pt has history of lalo positive and anxiety will order esr crp to exclude myopathy ESR CRP came back elevated pt has low grade fever continue to watch maybe due to pain sympathetic response continue to watch Mild anemia no signs of bleeding Mildly elevated CK and 193 Mild left hip osteoarthritis Subjective Date/time seen: 09/20/22 13:19 Interval history: No overnight events. Pain is gone. No nausea vomiting. Review of Systems Review of Systems: All systems reviewed & are unremarkable except as noted in HPI and below Exam Narrative: APPEARANCE:? No acute distress, nontoxic, resting in bed Eyes: EOMI HEENT: Normocephalic, atraumatic, CV: Regular rate and rhythm without murmur RESPIRATORY: No respiratory distress.? Clear to auscultation bilaterally.? Abdomen: Soft and nontender, no rebound or guarding MUSCULOSKELETAl: Moves all extremities, no clubbing cyanosis or edema SKIN:: Warm, dry. Normal Color no rash or lesions Objective Data Vital Signs Vital Signs: Vital Signs - 24 hr 09/20/22 14:10 09/20/22 19:28 09/20/22 19:54 Temperature 98.7 F 96.6 F L Pulse Rate 72 71 Respiratory Rate 16 20 Blood Pressure 132/63 169/71 H Pulse Oximetry 98 100 Oxygen Delivery Room Air 09/20/22 19:55 09/20/22 20:10 09/21/22 04:50 Temperature 96.6 F L 97.6 F Pulse Rate 71 70 64 Respiratory Rate 20 20 Blood Pressure 169/71 H 139/62 Pulse Oximetry 100 100 Oxygen Delivery 09/21/22 04:52 09/21/22 09:16 09/21/22 08:05 Temperature 97.6 F Pulse Rate 64 72 Respiratory Rate 20 Blood Pressure 139/62 Pulse Oximetry 100 Oxygen Delivery Room Air Intake/Output Intake/Output: Intake & Output 09/18/22 09/19/22 09/20/22 09/21/22 23:59 23:59 23:59 23:59 Intake Total 1190 3240 1350 630 Output Total 799 080 3007 1000 Balance 990 6979 -519 -352 Meds/Results Medications: Active Medications Generic Name Dose Route Start Last Admin Trade Name Freq PRN Reason Stop Dose Admin Hydrocodone Bitart/Acetaminophen 1 tab 09/19/22 14:03 09/19/22 17:39 Hydrocodone/Acetaminophen (*Crx) 5-325 Mg Tablet PO 1 tab Q4H PRN Administration Mild Pain (1-3) Hydrocodone Bitart/Acetaminophen 1 tab 09/19/22 14:03 Hydrocodone/Acetaminophen (*Crx) 10-325 Mg Tablet PO Q4H PRN Moderate Pain (4-6) Al Hydrox/Mg Hydrox/Simethicone 20 ml 09/19/22 14:03 Mag Hydrox/Al Hydrox/Simeth 30 Ml Udc PO Q4H PRN Indigestion/Heartburn Alprazolam 0.25 mg 09/17/22 16:57 09/20/22 09:05 Alprazolam (*Crx) 0.25 Mg Tablet PO 0.25 mg TID PRN Administration Anxiety Amlodipine Besylate 5 mg 09/17/22 17:00 09/21/22 08:03 Amlodipine Besylate 5 Mg Tablet PO 5 mg BID BRIJESH Administration Bisacodyl 10 mg 09/19/22 14:03 Bisacodyl 10 Mg Suppository RECTAL
[2022-09-21 04:50] VITALS: BP 139/62; PULSE 64; RESP 20; TEMP 36.4; O2SAT 100
[2022-09-21 04:52] VITALS: BP 139/62; PULSE 64; RESP 20; TEMP 36.4; O2SAT 100
[2022-09-21] MEDS: DEXAMETHASONE 4 MG TABLET PO (05:25)
[2022-09-21] MEDS: SERTRALINE HCL 50 MG TABLET 100 MG PO (08:02)
[2022-09-21] MEDS: CHOLECALCIFEROL 1,000 UNITS TABLET 2000 UNITS PO (08:02)
[2022-09-21] MEDS: DICLOFENAC SODIUM 1% 100 GM GEL (*BKC) 1 APPLIC TOPICAL (08:03)
[2022-09-21] MEDS: amLODIPine BESYLATE 5 MG TABLET PO (08:03)
[2022-09-21 09:16] VITALS: PULSE 72
[2022-09-21] MEDS: METOPROLOL TARTRATE 50 MG TAB PO (09:16)
--- NOTE | 2022-09-21 13:21 | PM.DS ---
DS: Admitting Diagnosis Discharge Date 09/21/2022 Admitting Diagnosis Left thigh pain DS: Discharge Diagnosis Discharge Diagnosis (1) Intractable low back pain: Code(s): M54.59 - Other low back pain Status: Acute (2) Thigh pain: Code(s): M79.659 - Pain in unspecified thigh Status: Acute DS: Summary Hospital Course Hospital Course: # Intractable low back pain with left thigh pain: Started On Flexeril oxycodone.? Started on steroid therapy with Decadron 4 mg q.8 hour PT OT was ordered. CT lumbar spine reviewed.? Disc bulge noted from L2 to S1.? Bilateral facet joint osteoarthritis [id number] to mild bilateral neuroforaminal stenosis in multiple levels with mild central canal stenosis. Neurosurgery consulted. MRI lumbar spine:Mass in the left lateral recess at the L3 pedicular and infrapedicular levels with mass effect on the left L3 nerve root, likely a sequestered disc. 2. Moderate lumbar spondylosis Patient Underwent left L2 2 3 microscopic lumbar diskectomy Patient which improved after the procedure. PT OT evaluated post surgery. # dvt prop lovenox # pt has history of lalo positive and anxiety will order esr crp to exclude myopathy ESR CRP came back elevated # pt has low grade fever continue to watch maybe due to pain sympathetic response continue to watch # Mild anemia no signs of bleeding # Mildly elevated CK and 193 # Mild left hip osteoarthritis Time Spent with Patient Time attestation: Total time spent providing and/or coordinating discharge services: 40 minutes Exam Narrative: APPEARANCE:? No acute distress, nontoxic, resting in bed Eyes: EOMI HEENT: Normocephalic, atraumatic, CV: Regular rate and rhythm without murmur RESPIRATORY: No respiratory distress.? Clear to auscultation bilaterally.? Abdomen: Soft and nontender, no rebound or guarding MUSCULOSKELETAl: Moves all extremities, no clubbing cyanosis or edema SKIN:: Warm, dry. Normal Color no rash or lesions DS: Data Data Completed and Pending Completed studies during hospitalization: Procedure Note - Detailed Date of Procedure 09/19/22 Pre-op Diagnosis Left L2-3 herniated nucleus pulposus Post-op Diagnosis Same Procedure Performed Left L2-3 microscopic lumbar diskectomy Surgeon Jesus Carbajal MD Film Waxer Caroline Anesthesia General Indications Belen is a 66-year-old female with a left sided radiculopathy related to herniated disc at L2-3 who presents for microdiskectomy. Description of Procedure The patient was brought to the operating room in the supine position, was sedated, intubated and placed under general anesthesia in routine fashion.? She was then turned into the prone position on a Bradley frame.? The area of operation on her back was examined, marked for incision, prepped and draped in routine sterile fashion.? Incision was marked over the L2 and L3 spinous processes in the midline.? This area was injected with 0.5% lidocaine with [id number] epinephrine.? Intravenous antibiotics given prior to incision.? Incision was made with a 10 blade scalpel down to the lumbodorsal fascia.? A subperiosteal dissection of the muscle soft tissue weight spinous process and lamina at L2-3 on the left was performed with a subperiosteal elevator and Bovie cautery.? A verifying x-rays obtained to verify the level of operation.? Midas-Edward drill was used to perform a hemilaminectomy and medial facetectomy at L2-3.? Under microscopy the yellow ligament was lifted and removed piecemeal using Kerrison punches.? This was carried down into the L3 lamina as the fragment was caudally migrated.? With the thecal sac retracted a nerve hook was used to tease free pieces of herniated disc from beneath the nerve and removed with a Orozco rongeur.? This was done several times and in the axilla as well until a dental instrument could be placed in the ventral epidural space and above and below the nerve root out the foramen to confirm microdecompression.? Th
== END 2022-09-21 13:25 | disposition home or self-care (01) | DRG 520 ==
LOC: ANHED 08:36 → ANH2MED 12:34
PROVIDERS: Internal Medicine; Neurological Surgery; Admitting Provider Family Medicine; Emergency Provider Emergency Medicine; Visit Provider Neurological Surgery
PROC: 0SB20ZZ Excision of Lumbar Vertebral Disc, Open Approach (ICD-10-PCS; CPT 63030; principal; 2022-09-19 15:00)
DX: M51.17 Intervertebral disc disorders with radiculopathy, lumbosacral region (principal); M47.27 Other spondylosis with radiculopathy, lumbosacral region; M48.07 Spinal stenosis, lumbosacral region; M16.12 Unilateral primary osteoarthritis, left hip; D64.9 Anemia, unspecified; F41.9 Anxiety disorder, unspecified; F17.210 Nicotine dependence, cigarettes, uncomplicated; I10 Essential (primary) hypertension; R50.9 Fever, unspecified; R76.8 Other specified abnormal immunological findings in serum; Z20.822 Contact with and (suspected) exposure to COVID-19; Z79.82 Long term (current) use of aspirin
CPT/HCPCS: 36415; 72131; 72158; 73552; 80053; 82550; 83735; 85025; 85652; 86140; 87636; 96361; 96365; 96372; 96374; 96375; 97110; 97161; 97165; 97530; 97535; 99199; 99285; A9270; A9577; G0378; J0330; J0690; J1100; J1650; J1885; J2250; J2270; J2405; J2704; J3010; J3360; J3480; J7120; J8540

== ENCOUNTER 2022-10-11 06:37 | Emergency (ER) | payer BC, SELFPAY ==
--- NOTE | ~2022-10-11 | CT_ITS ---
Noncontrast CT scan of the lumbar spine CLINICAL HISTORY: Back pain, radiculopathy TECHNIQUE: Axial noncontrast imaging of the lumbar spine was performed. Sagittal and coronal reformat dragan images were constructed. Dose reduction technique was used on this scan by utilizing automated ex posure control and iterative reconstruction technique. COMPARISON: 09/17/2022 FINDINGS: There is no fracture or subluxation of the lumbar spine. Vertebral bodies maintain normal h eight and alignment. At L1-L2, there is no disc bulge or herniation. No spinal canal stenosis or neural foraminal narrowin g. At L2-L3, there is minimal disc bulge. No spinal canal stenosis or neural foraminal narrowing. At L3-L4, there is minimal disc bulge. No spinal canal stenosis or definite neural foraminal narrowin g. At L4-L5, there is degenerative disc narrowing with mild disc bulge and facet arthropathy, particular ly on the right side. No george spinal canal stenosis. There is mild right neural foraminal narrowing. Left neural foramen preserved. At L5-S1, there is no disc bulge or herniation. No spinal canal stenosis. There is probable mild bila teral neural foraminal narrowing. Paravertebral soft tissues are unremarkable. IMPRESSION: Mild degenerative spondylosis, as detailed above. Consider follow-up/repeat MR as indicated to better compared to prior MR dated 09/18/2022. Reviewed, dictated and finalized at [facility]. ERCIAL SALES REPRESENTATIVE
[2022-10-11 06:41] VITALS: BP 147/85; PULSE 94; RESP 18; TEMP 36.8; O2SAT 94
[2022-10-11] MEDS: HYDROcodone/acetaminophen (*CRX) 5-325 MG TABLET 1 TAB PO (07:13)
--- NOTE | 2022-10-11 09:14 | ED.BACK ---
HPI - Back Pain/Injury General Chief Complaint: Back Pain/Injury Stated Complaint: back pain Time Seen by Provider: 10/11/22 06:57 History of Present Illness HPI Narrative: Patient is a 66-year-old female who presents ER with left leg pain. Patient is postoperative patient of Dr. Carbajal who underwent microdiscectomy in mid September. She is been on Hayden and Flexeril at home for her pain but ran out 2 days ago and pain is worsening today. No saddle anesthesia or difficulty with urination/defecation. No incontinence. No lower extremity numbness or tingling. Has occasional burning going into the left thigh and when she stands up has spasm in her left thigh as well. No pain at her surgical site no drainage or redness. Related Data Home Medications Medication Instructions Recorded Confirmed amlodipine 5 mg tablet 5 mg PO BID 09/26/20 09/17/22 aspirin 81 mg chewable tablet 81 mg PO DAILY 09/26/20 09/17/22 (Inder Chewable Low Dose Aspirin) metoprolol tartrate 50 mg tablet 50 mg PO BID 09/26/20 09/17/22 sertraline 100 mg tablet 100 mg PO DAILY 09/26/20 09/17/22 cholecalciferol (vitamin D3) 50 50 mcg PO DAILY 09/17/22 09/17/22 mcg (2,000 unit) capsule (Vitamin D3) Allergies Allergy/AdvReac Type Severity Reaction Status Date / Time [id number] Reductase AdvReac Weakness Verified 10/11/22 06:49 Inhibitor Review of Systems Review of Systems: All systems reviewed & are unremarkable except as noted in HPI and below Constitutional: Constitutional: Denies chills, Denies fatigue and Denies fever(s) Gastrointestinal: Gastrointestinal: Denies abdominal pain, Denies nausea and Denies vomiting Musculoskeletal: Musculoskeletal: Denies back pain, Denies arthralgias, Denies joint swelling and Reports muscle cramps Neurologic: Denies focal weakness and Denies numbness Comments: Burning pain left thigh PMFSH Past Medical History Medical History (Updated 10/11/22 @ 09:18 by Felipe Hernandez MD) KO positive Anxiety Inflammatory arthritis Statin myopathy Surgical History Surgical History (Updated 10/11/22 @ 09:22 by Felipe Hernandez MD) History of ankle surgery S/P lumbar microdiscectomy Family History Family History Mother Heart disease Father Brain aneurysm Social History Social History Smoking packs per day: 0.25 Smoking cigarettes per day: 5.0 Smoking status: Current every day smoker Tobacco type: cigarettes Alcohol intake: former Substance use type: marijuana Other substance usage details: gummies and smoking Last use: 09/17/22 Lack of Transportation: No Lack of Food: Never True Current Housing: I Have Housing Concerned About Future Housing: No Difficulty Paying Gas/Electric Bills: No Difficulty Paying for Meds: No Currently Unemployed: No Education: High School Diploma/GED Difficulty w/ Childcare or Family Care: No Spiritual care concerns: No Exam Narrative: GENERAL: Well-appearing, well-nourished, and in no acute distress. HEAD: Normocephalic, atraumatic. CHEST: Clear to auscultation. No respiratory distress. HEART: Regular rate and rhythm. Normal peripheral pulses. Back: Lumbar surgical site that is well-healing without cellulitis or wound dehiscence. No drainage or fluctuance to the area nor tenderness. No paraspinal or midline tenderness of the T/L-spine. No SI tenderness. Patient does have pain in her left thigh when going from sitting to standing. EXTREMITIES: Normal range of motion. No edema. SKIN: Warm, dry, no rash. NEURO: Alert and oriented x3. PSYCH: Normal mood and affect. Course Course Emergency Course: I discussed the case with Dr. Dial. She recommends giving patient prescription for Medrol Dosepak, Hayden, and Flexeril so she can get through the weekend and then they will schedule follow-up
== END 2022-10-11 09:45 | disposition home or self-care (01) ==
PROVIDERS: Emergency Provider Emergency Medicine
DX: G89.18 Other acute postprocedural pain (principal); M79.652 Pain in left thigh; M19.90 Unspecified osteoarthritis, unspecified site; F41.9 Anxiety disorder, unspecified; F17.210 Nicotine dependence, cigarettes, uncomplicated; M47.816 Spondylosis without myelopathy or radiculopathy, lumbar region; Z79.82 Long term (current) use of aspirin
CPT/HCPCS: 72131; 99284; A9270

== ENCOUNTER 2023-01-23 01:45 | Emergency (ER) | payer MEDICARE, SELFPAY ==
[2023-01-23 01:50] VITALS: BP 131/64; PULSE 85; RESP 20; TEMP 36.1; O2SAT 98
--- NOTE | 2023-01-23 02:34 | ED.GENADULT ---
HPI - General Adult General Chief complaint: Extremity Injury, Upper Stated complaint: bilateral wrist pain and swelling Time Seen by Provider: 01/23/23 02:12 History of Present Illness HPI narrative: This 67-year-old female who is being evaluated by rheumatology for inflammatory arthritis presenting with bilateral wrist pain. She originally had pain in the right wrist last night. She took some Tylenol and it eventually resolved. Tonight she started having severe pain in her left wrist that she describes as burning sharp/stabbing/aching. patient took Tylenol at midnight with no relief. she takes gabapentin 3 times per day. She denies fevers, trauma or weakness in her hands. no significant warmth or overlying skin changes. Patient states that she has issues with chronic pain. Related Data Home Medications Medication Instructions Recorded Confirmed aspirin 81 mg chewable tablet 81 mg PO DAILY 09/26/20 11/21/22 (Inder Chewable Low Dose Aspirin) metoprolol tartrate 50 mg tablet 50 mg PO BID 09/26/20 11/21/22 cholecalciferol (vitamin D3) 50 50 mcg PO DAILY 09/17/22 11/21/22 mcg (2,000 unit) capsule (Vitamin D3) calcipotriene 0.005 % topical 1 applic topical DIRECTED 11/21/22 11/21/22 ointment hydrocortisone 2.5 % topical cream 1 applic topical DIRECTED 11/21/22 11/21/22 sertraline 100 mg tablet 200 mg PO DAILY 11/21/22 11/21/22 Allergies Allergy/AdvReac Type Severity Reaction Status Date / Time [id number] Reductase AdvReac Weakness Verified 11/21/22 09:52 Inhibitor PMF Past Medical History Medical History KO positive Anemia Anxiety Elevated fasting glucose Encounter to establish care H/O headache HTN (hypertension) Hyperlipidemia Inflammatory arthritis Intractable low back pain Skin abnormalities Statin myopathy Vitamin D deficiency Surgical History Surgical History History of ankle surgery S/P lumbar microdiscectomy Family History Family History Mother Heart disease Father Brain aneurysm Grandparent Heart disease Social History Social History Smoking packs per day: 0.25 Smoking cigarettes per day: 5.0 Smoking status: Current some day smoker Tobacco type: cigarettes Alcohol intake: former Substance use: current Substance use type: marijuana Other substance usage details: gummies and smoking Last use: 09/17/22 Lack of Transportation: No Lack of Food: Never True Current Housing: I Have Housing Concerned About Future Housing: No Difficulty Paying Gas/Electric Bills: No Difficulty Paying for Meds: No Currently Unemployed: No Education: High School Diploma/GED Difficulty w/ Childcare or Family Care: No Spiritual care concerns: No Exam Narrative: APPEARANCE: No apparent distress. Head: atraumatic. EYES: EOMI, NOSE: Atraumatic NECK: Trachea midline RESPIRATORY: No increased rate of breathing CARDIOVASCULAR: RRR, ABDOMINAL: Non-distended MUSCULOSKELETAl: for focal exam of the left wrist revealed no overlying skin changes. There is mild swelling. Cap refills less than 2 seconds and pulses are palpable. Gore Stitcher strength is intact. Right wrist exam is normal. NEURO: Alert. Moving 4/4 extremities SKIN:: Warm, dry. Normal color PSYCHIATRIC: Normal affect Course Vital Signs Vital signs: Vital Signs Temperature 96.9 F L 01/23/23 01:50 Pulse Rate 85 01/23/23 01:50 Respiratory Rate 20 01/23/23 01:50 Blood Pressure 131/64 01/23/23 01:50 Pulse Oximetry 98 01/23/23 01:50 Temperature 96.9 F L 01/23/23 01:50 Pulse Rate 85 01/23/23 01:50 Respiratory Rate 20 01/23/23 01:50 Blood Pressure 131/64 01/23/23 01:50 Pulse Oximetry 98 01/23/23 01:50 M
[2023-01-23] MEDS: methocarbamoL 750 MG TABLET PO (02:59)
[2023-01-23] MEDS: KETOROLAC 15 MG/ML VIAL (*BKC) IM (02:59)
[2023-01-23] MEDS: GABAPENTIN 300 MG CAPSULE PO (03:00)
[2023-01-23] MEDS: oxyCODONE HCL (*CRX) 5 MG TAB IR PO (03:00)
== END 2023-01-23 03:08 | disposition home or self-care (01) ==
PROVIDERS: Emergency Provider Emergency Medicine; PCP Nurse Practitioner Family
DX: M25.531 Pain in right wrist (principal); M25.532 Pain in left wrist; I10 Essential (primary) hypertension; E78.5 Hyperlipidemia, unspecified; E55.9 Vitamin D deficiency, unspecified; F41.9 Anxiety disorder, unspecified; F17.210 Nicotine dependence, cigarettes, uncomplicated; Z79.82 Long term (current) use of aspirin
CPT/HCPCS: 96372; 99283; A9270; J1885

== ENCOUNTER → 2023-02-05 10:18 | Outpatient (CLI) | payer MEDICARE, SELFPAY ==
--- NOTE | ~2023-02-05 | XR_ITS ---
Left wrist Technique: PA and lateral views were obtained. Clinical History: Joint pain Findings: No acute fracture or dislocation is seen. Osseous alignment is anatomic. Joint spaces are p reserved. There is soft tissue calcification just distal to the ulnar styloid process. Impression: No fracture or dislocation. Soft tissue calcification just distal to the ulnar styloid process, nonspecific. This could reflect m ineralized TFCC or other soft tissue calcification. Reviewed, dictated and finalized at location M. Impression: No fracture or dislocation. Soft tissue calcification just distal to the ulnar styloid process, nonspecific . This could reflect mineralized TFCC or other soft tissue calcification.
--- NOTE | ~2023-02-05 | XR_ITS ---
Left Hand Technique: PA and lateral views were obtained. Clinical History: Pain Findings: No acute fracture or dislocation is seen. Osseous alignment is anatomic. Joint spaces are p reserved. Soft tissues are unremarkable. Impression: Unremarkable left hand. Reviewed, dictated and finalized at location M. Impression: Unremarkable left hand.
--- NOTE | ~2023-02-05 | XR_ITS ---
Right wrist Technique: PA and lateral views were obtained. Clinical History: Pain Findings: No acute fracture or dislocation is seen. Osseous alignment is anatomic. Joint spaces are p reserved. Soft tissues are unremarkable. Impression: Unremarkable right wrist radiographs. Reviewed, dictated and finalized at location M. Impression: Unremarkable right wrist radiographs.
--- NOTE | ~2023-02-05 | XR_ITS ---
Right Hand Technique: PA and lateral views were obtained. Clinical History: Pain Findings: No acute fracture or dislocation is seen. Osseous alignment is anatomic. Joint spaces are p reserved. Soft tissues are unremarkable. Impression: Unremarkable right hand. Reviewed, dictated and finalized at location M. Impression: Unremarkable right hand.
--- NOTE | ~2023-02-05 | XR_ITS ---
EXAMINATION: XR ankle LT 2V, XR ankle RT 2V, XR foot RT 2V, XR foot LT 2V DATE: 02/05/2023 10:52 EXAMINATION: XR ankle LT 2V, XR ankle RT 2V, XR foot RT 2V, XR foot LT 2V DATE: 02/05/2023 10:52 INDICATION: Multiple joint pain TECHNIQUE: 1. Anteroposterior and lateral view of the right ankle were obtained. 2. Dorsoplantar and lateral views of the right foot were obtained. 3. Anteroposterior and lateral view of the left ankle were obtained. 4. Dorsoplantar and lateral views of the left foot were obtained. COMPARISON: None. FINDINGS: Right foot and ankle Lateral plate and screw fixation along the right lateral malleolus and fixation across the medial mal leolus pair of lag screws. Presumptive prior fractures of the medial lateral malleoli have healed in essentially anatomic alignment. There is some heterotopic ossification along the medial process of th e talus likely related to associated chronic deltoid ligament sprain. There is an old fracture at the neck of the right fifth metatarsal which is healed with 10 degree medial angulation. Old healed frac ture at the neck of the right fifth proximal phalanx. No acute fractures identified. Polyarticular os teoarthritis in the right mid and forefoot, moderate severity at the first metatarsophalangeal joint and mild at several tarsal metatarsal and interphalangeal joints. Soft tissues are unremarkable. No a nkle joint effusion. Left foot and ankle Alignment of the foot and ankle is normal. No fracture. 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 Small plantar calcaneal spur. Soft tissues are unremark able. No ankle joint effusion. The soft tissues are unremarkable. IMPRESSION: 1. Relatively symmetric pattern of polyarticular osteoarthritis in the bilateral mid and forefeet, se diony at the right and moderate at the left first metatarsophalangeal joints and otherwise mild. 2. Old healed fractures with internal fixation at the right medial and lateral malleoli and without f ixation at the necks of the fifth metatarsal and fifth proximal phalanx. Reviewed, dictated and finalized at location B. IMPRESSION: 1. Relatively symmetric pattern of polyarticular oste[facility] in the [facility] mid and forefeet, severe at the right and moderate at the left first metatars ophalangeal joints and otherwise mild. 2. Old healed fractures with internal fixation at the right medial and lateral malleoli and without fixation at the necks of the fifth metatarsal and fifth pr oximal phalanx. IMPRESSION: 1. Relatively symmetric pattern of polyarticular osteoarthritis in the bilatera l mid and forefeet, severe at the right and moderate at the left first metatars ophalangeal joints and otherwise mild. 2. Old healed fractures with internal fixation at the right medial and lateral malleoli and without fixation at the necks of the fifth metatarsal and fifth pr oximal phalanx. IMPRESSION: 1. Relatively symmetric pattern of polyarticular osteoarthritis in the bilatera l mid and forefeet, severe at the right and moderate at the left first metatars ophalangeal joints and otherwise mild. 2. Old healed fractures with internal fixation at the right medial and lateral malleoli and without fixation at the necks of the fifth metatarsal and fifth pr oximal phalanx.
== END ==
PROVIDERS: PCP Nurse Practitioner Family; Visit Provider Internal Medicine Rheumatology
DX: M25.50 Pain in unspecified joint (principal); M19.071 Primary osteoarthritis, right ankle and foot; M19.072 Primary osteoarthritis, left ankle and foot
CPT/HCPCS: 73100; 73120; 73600; 73620

== ENCOUNTER 2024-06-03 12:26 | Outpatient (CLI) | payer MEDICARE, SELFPAY ==
--- NOTE | 2024-06-03 12:40 | ECHO_ITS ---
Patient Info Name: Belen Chapman Age: 68 years : 1955 Gender: Female Ht: 66 in Wt: 200 lbs BSA: 2.09 m2 HR: 59 bpm BP: 162 / 96 mmHg Technical Quality: Fair Exam Date: 06/03/2024 12:48 PM Exam Location: Echo Lab Patient Status: Outpatient Admit Date: 06/03/2024 Staff Ordering Physician: Rachel Maldonado NP Quick Technician: Carli Veronica RDCS Attending Provider: Rachel Maldonado NP Exam Type: CA echo doppler color flow Study Info Indications R01.1 - Cardiac murmur, unspecified Complete two-dimensional, color flow and Doppler transthoracic echocardiogram is performed. Strain analysis performed. Summary 1. Complete two-dimensional, color flow and Doppler transthoracic echocardiogram is performed. 2. Left ventricular chamber dimension is normal. 3. Left ventricular systolic function is normal, estimated at 65-70%. 4. The left ventricular diastolic function is grade I diastolic dysfunction. 5. E/e' 13 is mildly elevated. 6. Global longitudinal strain is normal at -19.8%. 7. There is mild aortic valve regurgitation. 8. There is mild mitral valve regurgitation. 9. No pulmonary hypertension, estimated pulmonary arterial systolic pressure is 23 mmHg. Left Ventricle E/e' 13 is mildly elevated. Global longitudinal strain is normal at -19.8%. Left ventricular chamber dimension is normal. Left ventricular systolic function is normal, estimated at 65-70%. The left ventricular diastolic function is grade I diastolic dysfunction. Right Ventricle Right ventricular chamber dimension is normal. Right ventricular systolic function is normal. Left Atria Left atrial chamber dimension is normal. Right Atria Right atrial chamber dimension is normal. Aortic Valve The aortic valve is trileaflet. There is no aortic valve stenosis. There is mild aortic valve regurgitation. Pulmonic Valve There is no pulmonic regurgitation. Mitral Valve There is no mitral valve stenosis. There is mild mitral valve regurgitation. Tricuspid Valve There is no tricuspid valve regurgitation. No pulmonary hypertension, estimated pulmonary arterial systolic pressure is 23 mmHg. Pericardium/Pleural There is no pericardial effusion. Inferior Vena Cava Normal inferior vena cava with >50% collapse upon inspiration consistent with normal right atrial pressure, 5 mmHg. Aorta The aortic root size at the sinus of Valsalva is normal. Left Ventricular Outflow Tract Name Value Normal LVOT 2D LVOT Diameter 2.0 cm LVOT Doppler LVOT Peak Gradient 9 mmHg LVOT Mean Gradient 6 mmHg LVOT VTI 38 cm LVOT VTI/AV VTI Ratio 0.9 LVOT Stroke Volume 121 ml LVOT CO 6.5 l/min LVOT CI 3.1 l/min/m2 Pulmonic Valve Name Value Normal RVOT Doppler RVOT Peak Gradient 2 mmHg
--- NOTE | 2024-06-03 12:40 | ECG_ITS ---
Test Date: 2024-06-03 13:25:57 Measurements Intervals [place] Rate: 57 P: 56 SC: 187 QRS: -10 QRSD: 92 T: 47 QT: 416 QTc: 408 Interpretive Statements SINUS BRADYCARDIA WITH SINUS ARRHYTHMIA CONSIDER INFERIOR INFARCT, AGE INDETERMINATE BORDERLINE ST-T WAVE ABNORMALITY- ANTEROLAT/HIGH LAT LEADS BASELINE ARTIFACT- I, II, III, AVR, AVF, V5-V6 ABNORMAL ECG No previous ECG available for comparison Electronically Signed On 06-03-2024 14:14:38 CDT by Alexander Painter D.O.
== END 2024-06-03 12:27 | disposition home or self-care (01) ==
PROVIDERS: PCP Nurse Practitioner Family; Visit Provider Nurse Practitioner Family
DX: R01.1 Cardiac murmur, unspecified (principal); I10 Essential (primary) hypertension; R07.9 Chest pain, unspecified; R94.31 Abnormal electrocardiogram [ECG] [EKG]
CPT/HCPCS: 93005; 93306

== ENCOUNTER 2024-06-24 10:21 | Outpatient (CLI) | payer MEDICARE, SELFPAY ==
--- NOTE | 2024-06-24 10:54 | EST_ITS ---
Patient Info Name: Belen Chapman Age: 68 years : 1955 Gender: Female Ht: 66 in Wt: 200 lbs BSA: 2.09 m2 Heart Rhythm: Sinus Rhythm Exam Date: 06/24/2024 11:04 AM Exam Location: Echo Lab Patient Status: Outpatient Admit Date: 06/24/2024 Staff Ordering Physician: Rachel Maldonado NP Attending Provider: Rachel Maldonado NP Exercise Technologist: Cindy Cordero CT Exercise Physician: Alexander Painter DO Exam Type: CA stress test treadmill Study Info Indications R94.31 - Abnormal electrocardiogram ECG EKG A treadmill exercise stress test was performed. Summary 1. 1. Inconclusive Robin exercise stress test for ischemic ST changes by ECG criteria as she only achieved 63% MPHR for age group. 2. 2. Poor functional capacity, achieving 4.6 METs of workload. 3. 3. Appropriate HR response to exercise. 4. 4. Appropriate HR recovery at 1 minute post exercise. 5. 5. No imaging with stress testing. 6. 6. Patient informed of the above results. Protocol: Robin Stress ECG Details Stage: REST Duration (min): 1 min : 41 sec Speed (mph): 0.0 Grade (%): 0 HR (bpm): 65 SBP (mmHg): 135 DBP (mmHg): 68 METS: --- Stage: REST Duration (min): 19 min : 22 sec Speed (mph): 0.0 Grade (%): 0 HR (bpm): 65 SBP (mmHg): 135 DBP (mmHg): 68 METS: --- Stage: STAGE 1 Duration (min): 1 min : 0 sec Speed (mph): 1.7 Grade (%): 10 HR (bpm): 89 SBP (mmHg): 135 DBP (mmHg): 68 METS: --- Stage: STAGE 1 Duration (min): 2 min : 0 sec Speed (mph): 1.7 Grade (%): 10 HR (bpm): 95 SBP (mmHg): 135 DBP (mmHg): 68 METS: --- Stage: STAGE 1 Duration (min): 2 min : 8 sec Speed (mph): 1.7 Grade (%): 10 HR (bpm): 95 SBP (mmHg): 135 DBP (mmHg): 68 METS: --- Stage: RECOVERY Duration (min): 0 min : 51 sec Speed (mph): 0.0 Grade (%): 0 HR (bpm): 89 SBP (mmHg): 157 DBP (mmHg): 75 METS: --- Stage: RECOVERY Duration (min): 1 min : 51 sec Speed (mph): 0.0 Grade (%): 0 HR (bpm): 78 SBP (mmHg): 157 DBP (mmHg): 75 METS: --- Stage: RECOVERY Duration (min): 2 min : 51 sec Speed (mph): 0.0 Grade (%): 0 HR (bpm): 74 SBP (mmHg): 177 DBP (mmHg): 74 METS: --- Stage: RECOVERY Duration (min): 3 min : 49 sec Speed (mph): 0.0 Grade (%): 0 HR (bpm): 69 SBP (mmHg): 177 DBP (mmHg): 74 METS: --- Rest HR: 65 bpm Peak HR: 97 bpm Rest Sys BP: 135 mmHg Peak Sys BP: 177 mmHg Max Pred HR: 154 bpm % Max Pred HR: 63 % Target HR: 131 bpm Max RPP: 17,169 bpm*mmHg Perea Score: 0 Termination Reason: Maximal effort/unable to continue Cardiac Symptoms: Shortness of breath Max ST Seg Deviation: 0.50 mm Total Time: 2 min : 8 sec Rest [place] BP: 68 mmHg Peak [place] BP: 74 mmHg Angina Score: None Total METS: 4.6 Resting ECG Sinus rhythm. Stress ECG No ST changes. Arrhythmias None. Report Signatures
== END 2024-06-24 10:22 | disposition home or self-care (01) ==
LOC: ANHCARD 10:23
PROVIDERS: PCP Nurse Practitioner Family; Visit Provider Nurse Practitioner Family
DX: R94.31 Abnormal electrocardiogram [ECG] [EKG] (principal)
CPT/HCPCS: 93017

== ENCOUNTER 2025-02-05 07:06 | Inpatient (IN) | payer MEDICARE, SELFPAY ==
[2025-02-05] VITALS (14 sets, daily range): BP systolic 110–156; BP diastolic 44–88; PULSE 57–88; RESP 13–20; TEMP 36.4–36.6; O2SAT 93–100; BMI 30.8
--- NOTE | ~2025-02-05 | CT_ITS ---
CT brain wo con Ordering provider: Felipe Hernandez MD History: 69 years Female with . dizziness . Comparison: None. Technique: CT of the head without contrast. Radiation reduction technique utilized.The dose-length pr oduct was 605.33 mGy-cm. FINDINGS: BRAIN PARENCHYMA AND CSF SPACES: Mild leukoaraiosis and diffuse cortical atrophy. Mild atheromatous d isease. No midline shift, mass effect or hemorrhage. The brain parenchyma and CSF spaces are otherwise michael l. VISUALIZED PARANASAL SINUSES: Well aerated. MASTOIDS: Well aerated. BONES: The bones appear intact. SOFT TISSUES: Visualized nasopharynx is normal. Superficial soft tissues are normal. IMPRESSION: No acute intracranial findings. Reviewed, dictated and finalized at location A.
--- NOTE | ~2025-02-05 | CT_ITS ---
Procedure: CT femur RT wo con Ordering provider: Felipe Hernandez MD History: . hematoma eval . Comparison: None. Technique: Thin slice axial CT of the No IV contrast was given. Sagittal and coronal reformatted imag es were also obtained and reviewed. Radiation reduction technique utilized.The dose-length product wa s 1166.62 mGy-cm. Findings: BONES: No definite fracture or dislocation. JOINT SPACES: Mild osteoarthritic changes of the right hip and right knee. SOFT TISSUES: Fat stranding is seen medially and laterally in the area of the distal right femur with possible focal minimal fat stranding also seen in the deep fascia. Small hematoma seen medially measuring 1 x 1.5 cm. Contrast is seen in the urinary bladder. IMPRESSION: No acute osseous abnormality. Fat stranding seen in the lower femoral area laterally, medially and anteriorly with focal hematoma s een medially. Reviewed, dictated and finalized at location A. IMPRESSION: No acute osseous abnormality. Fat stranding seen in the lower femoral area laterally, medially and anteriorly with focal hematoma seen medially.
--- NOTE | ~2025-02-05 | CT_ITS ---
Procedure: CTA abd aorta runoff Ordering provider: Felipe Hernandez MD History: . leg ecchymosis, nontraumatic . Comparison: None. Technique: CT angiogram abdomen and pelvis was performed following timed intravenous injection of con trast. Thin slice axial images and reformatted coronal images were obtained. Three dimensional reform atted images were also obtained using a [employer] workstation. Radiation reduction technique utilized.The dose-length product was 1283.41 mGy-cm. 150 mL Omnipaque 3 50 was given IV. FINDINGS: UPPER ABDOMINAL ORGANS: Gallbladder: Calcification seen anterior to the right kidney most likely large gallbladder stones Spleen: Normal visualized portion. Stomach: Normal. Pancreas: Atrophic visualized portion. Kidneys: Normal visualized portion. PELVIC ORGANS: The bladder is underfilled with thickened wall. Evaluation for cystitis advised. BOWEL AND MESENTERY: Colon: No evidence of diverticulitis. No evidence of appendicitis. Small Bowel: Normal. No obstruction. Peritoneum/mesentery: No free air or free fluid. No mesenteric lymphadenopathy. RETROPERITONEUM: No retroperitoneal lymphadenopathy. ABDOMINAL AORTA: Atherosclerotic changes. No significant stenosis. No dissection. ILIAC ARTERIES AND BRANCHING VESSELS: Atherosclerotic changes. No significant stenosis. RENAL ARTERIES: Atherosclerotic the origin. Normal caliber. OTHER BRANCHING VESSELS OF THE ABDOMINAL AORTA AND THE MESENTERIC ARTERIES: Normal. Right bowel-containing and inguinal hernia. Otherwise, The superficial soft tissues of the abdomen an d pelvis are normal. Age appropriate degenerative changes of the spine. LOWER EXTREMITIES: COMMON FEMORAL ARTERIES: Atherosclerotic changes. FEMORAL ARTERIES: Apart 50% of the proximal right SFA. Severe narrowing of about 70% in the distal le ft SFA. BILATERAL PROFUNDA FEMORA: Normal POPLITEAL ARTERIES: Atherosclerotic changes with mild narrowing on the right. TRIFURCATION AND THE POSTERIOR/ANTERIOR TIBIAL AND PERONEAL ARTERIES: Bilaterally demonstrated. FLOW TO THE FOOT: Possible inflow versus atherosclerotic changes suggestive of patent dorsalis pedis. Clinical correlation advised. Flow demonstrated within the anterior and posterior tibial arteries below the ankle. BONES AND SOFT TISSUES: Edema is seen in the subcutaneous tissues bilaterally in the area of the plan tar aspect of the foot. Edema seen in the subcutaneous tissues of the right lower extremity at the kn ee area Postoperative changes seen in the right ankle area IMPRESSION: Severe narrowing of the distal left SFA of about 70% with about 50% in the proximal right SFA. Clinic al correlation and further evaluation advised. Edema in the plantar aspect of the foot bilaterally with edema in the area of the right knee medially . Clinical correlation and follow-up advised. Right inguinal bowel containing hernia. Large gallbladder stone. Reviewed, dictated and finalized at location A. IMPRESSION: Severe narrowing of the distal left SFA of about 70% with about 50% in the prox imal right SFA. Clinical correlation and further evaluation advised. Edema in the plantar aspect of the foot bilaterally with edema in the area of t he right knee medially. Clinical correlation and follow-up advised. Right inguinal bowel containing hernia. Large gallbladder stone.
--- NOTE | ~2025-02-05 | XR_ITS ---
EXAMINATION: XR chest 2V 02/05/2025 08:07 INDICATION: Weakness and dizziness PROCEDURE: 2 view chest COMPARISON: Chest dated 03/11/2011 FINDINGS: The lungs are clear. The cardiomediastinal silhouette is within normal limits. There are no pleural effusions. There is no pneumothorax suspected. There is a calcified granuloma of the rig ht lower lobe. IMPRESSION: 1: NO ACUTE CARDIOPULMONARY DISEASE. Reviewed, dictated and finalized at location A.
--- NOTE | ~2025-02-05 | CT_ITS ---
Procedure: CT femur LT wo con Ordering provider: Felipe Hernandez MD History: . hematoma eval . Comparison: None. Technique: Thin slice axial CT of the No IV contrast was given. Sagittal and coronal reformatted imag es were also obtained and reviewed. Radiation reduction technique utilized.The dose-length product wa s 1207.44 mGy-cm. Findings: BONES: No fracture or dislocation. JOINT SPACES: Mild osteoarthritic changes in the left knee and left hip. SOFT TISSUES: Minimal fat stranding seen anteriorly in the lower femoral area. No significant hematom a seen in the left side. Minimal fat stranding seen in the deep fascial. Contrast seen in the urinary bladder. IMPRESSION: No acute osseous abnormality. No significant hematoma seen. Reviewed, dictated and finalized at location A.
--- NOTE | 2025-02-05 07:09 | ECG_ITS ---
Test Date: 2025-02-05 07:13:32 Measurements Intervals [place] Rate: P: 0 TN: 0 QRS: 0 QRSD: 0 T: 0 QT: 0 QTc: 0 Interpretive Statements SINUS BRADYCARDIA NONSPECIFIC ST AND T-WAVE ABNORMALITY CANNOT RULE OUT PREVIOUS INFERIOR INFARCTION ABNORMAL ECG WARNING: DATA QUALITY MAY AFFECT INTERPRETATION NO SIGNIFICANT DIFFERENCE COMPARED WITH 06/03/2024 Electronically Signed On 02-05-2025 07:46:32 CDT by Joaquim Jamil M.D.
[2025-02-05 07:14] LABS: Glucose Point of Care 82 mg/dl (65-105)
--- OUTSIDE RECORDS SUMMARY | 2025-02-05 07:54 | XMS_ITS | Clinical Summary ---
[facility] Organization [facility] Address [address] Attn: Epic Prelude ADT JENNIFER HAYWOOD [id number] Care Team Providers Care Digital Commentator Name Role Phone Unavailable Primary Care Provider Unavailabl e Social History Tobacco Use Types Packs/Day Years Used Date Smoking Tobacco: Never Assessed Comments Unknown Sex and Gender Information Value Date Recorded Sex Assigned at Not on file Legal Sex Female 5:39 AM [employer]CR[employer]E [employer] Gender Identity Not on file Sexual Orientation Not on file Plan of Treatment Health Maintenance Due Date Last Done Comments DTAP/TDAP/TD VACCINES (1 - Tdap) 1976 COLORECTAL SCREENING 2002 Colorectal Cancer Screening 2002 FIT-DNA Q 3 years 2002 FIT/FOBT Q 1 year 2002 Flex Sig/CT Colonography Q 5 years 2002 PNEUMOCOCCAL VACCINE 50+ YEARS (1 of 1 - PCV) 12/31/19 08 ZOSTER VACCINE (1 of 2) 12/31/2007 BREAST CANCER SCREENING 07/26/2009 07/26/2008 OSTEOPOROSIS SCREENING 2022 INFLUENZA VACCINE (#1) 2024 RSV VACCINE (60+ or ) (1 - 1-dose 75+ series) 2032 Procedures Procedure Name Priority Date/Time Associated Diagnosis Comments MAMMO SCREENING BILAT Routine 07/26/2008 2:39 PM [employer]CR[employer]E [employer] from Last 3 Months or Most Recently Relevant to Health Maintenance Results * MAMMO SCREENING BILAT (07/26/2008 2:39 PM [employer]CR[employer]) Anatomical Region Laterality Modality Breast Bilateral Other 07/26/2008 2:39 PM [employer]E [employer] Narrative 07/27/2008 10:26 AM [employer] [address] [address] Admit Date: 07/26/2008 BELEN CHAPMAN Sex: F Admit Prov: SAADIA DAMICO Date: 1955 Primary Care Prov: SAADIA DAMICO CMRN: [id number] Room: [facility]: [id number] IMAGING SERVICES Ordering Prov: SAADIA DAMICO Accession Number: [id number] Interpretation BILATERAL SCREENING MAMMOGRAM 07/26/2008 Reason for this examination: Annual screening study. Findings: The parenchyma is predominantly fatty bilaterally. There is no mass, malignant calcification, lymphadenopathy or other sign of malignancy. Summary: No mammographic evidence of malignancy. Overall assessment: BIRADS category 1 - Negative Assessment BIRADS: 1-Negative Recommendation: Normal interval follow-up Dictated by: SATISH BURNHAM Electronically signed by: SATISH BURNHAM 07/27/2008 10:25 Transcribed: 07/27/2008 09:48 AMK Procedure Note Satish Burnham MD - 07/27/[address] [address] Admit Date: 07/26/2008 BELEN CHAPMAN Sex: F Admit Prov: SAADIA DAMICO Date: 1955 Primary Care Prov: SAADIA DAMICO CMRN: [id number] [id number] [facility] Ordering Prov: SAADIA DAMICO Interpretation BILATERAL SCREENING MAMMOGRAM 07/26/2008 Reason for this examination: Annual screening study. Findings: The parenchyma is predominantly fatty bilaterally. Thereis no mass, malignant calcification, lymphadenopathy or other sign ofmalignancy. Summary: No mammographic evidence of malignancy. Overall assessment: BIRADS category 1 - Negative Assessment BIRADS: 1-Negative Recommendation: Normal interval follow-up Dictated by: SATISH BURNHAM Electronically signed by: SATISH BURNHAM 07/27/2008 10:25 Transcribed: 07/27/2008 09:48 AMK Saadia Damico MD MAMMO ORDERABLES Final Resul t from Last 3 Months or Most Recently Relevant to Health Maintenance
--- OUTSIDE RECORDS SUMMARY | 2025-02-05 07:54 | XMS_ITS | Encounter Summary ---
Author Organization [facility] Address [address] [place] [address] Care Team Providers Care Manager Bakery Name Role Phone Unavailable Primary Care Provider Unavailabl e Encounter Details Date Type Department Care Team (Late st Contact Info) Description 07/26/2008 Outpatient Historical HIS [facility]M [facility] Saadia Damico MD Other Screening Mammogram Social History Tobacco Use Types Packs/Day Years Used Date Smoking Tobacco: Never Assessed Comments Unknown Sex and Gender Information Value Date Recorded Sex Assigned at Not on file Legal Sex Female 5:39 AM RETURN CHECKER Gender Identity Not on file Sexual Orientation Not on file documented as of this encounter Plan of Treatment Not on file documented as of this encounter Procedures Procedure Name Priority Date/Time Associated Diagnosis Comments MAMMO SCREENING BILAT Routine 07/26/2008 2:39 PM RETURN CHECKER documented in this encounter Results * MAMMO SCREENING BILAT (07/26/2008 2:39 PM RETURN CHECKER) Anatomical Region Laterality Modality Breast Bilateral Other 07/26/2008 2:39 PM RETURN CHECKER Narrative 07/27/2008 10:26 AM RETURN CHECKER [address] [address] Admit Date: 07/26/2008 BELEN CHAPMAN Sex: F Admit Prov: SAADIA DAMICO Date: 1955 Primary Care Prov: SAADIA DAMICO CMRN: [id number] Room: [facility] SSN: [id number] IMAGING SERVICES Ordering Prov: SAADIA DAMICO Accession Number: [id number] Interpretation BILATERAL SCREENING MAMMOGRAM 07/26/2008 Reason for [...] Procedure Note Satish Burnham MD - 07/27/2008 [facility] [address] [place], [place] [address] Admit Date: 07/26/2008 RADHA BELEN M Sex: F Admit Prov: DEDRICK SAADIA Date: 1955 Primary Care Prov: SAADIA DAMICO CMRN: [id number] [id number] [facility] Ordering Prov: SAADIA DAMICO Interpretation [...] Damico MD MAMMO ORDERABLES Final Resul t documented in this encounter Visit Diagnoses Diagnosis Other screening mammogram documented in this encounter
[2025-02-05] MEDS: SODIUM CHLORIDE 0.9% IV 1,000 ML 999 ML IV CONT ×2 (08:53→15:55)
[2025-02-05 09:14] LABS: Basophils Absolute Auto 0.1 K/mm3 (0.0-0.1); Basophils Percent Auto 1.1 % (0.2-1.2); Eosinophils Percent Auto 0.7 % (0-4.4); Hematocrit 25.3 % (37.0-47.0); Immature Granulocyte Absolute 0.02 K/mm3 (0.00-0.031); Immature Granulocyte Percent A 0.4 % (0-0.5); Lymphocytes Absolute Auto 1.18 K/mm3 (0.9-3.2); Lymphocytes Percent Auto 21.9 % (18.3-44.2); Mean Corpuscular HGB Conc 31.6 g/dl (32-36); Mean Corpuscular Hemoglobin 30.7 pg (26-34); Mean Corpuscular Volume 96.9 fl (80-100); Monocytes Absolute Auto 0.3 K/mm3 (0.1-0.6); Monocytes Percent Auto 5.4 % (2.6-8.5); Neutrophils Absolute Auto 3.8 K/mm3 (1.3-6.7); Neutrophils Percent Auto 70.5 % (45.5-73.1); Platelet Count Result 272 k/mm3 (150-375); Red Blood Count 2.61 M/mm3 (4.2-5.4); Red Cell Distribution Width 15.1 % (11.5-14.5); White Blood Count 5.4 K/mm3 (4.5-10.0)
[2025-02-05 09:25] LABS: INR 1.2; Prothrombin Time 14.9 Seconds (11.1-14.7)
[2025-02-05 09:26] LABS: Partial Thromboplastin Time 24.4 Seconds (22.3-36.8)
[2025-02-05 09:30] LABS: Alanine Aminotransferase 16 U/L (6-35); Albumin Level 3.6 g/dL (3.5-5.1); Alkaline Phosphatase 57 U/L (38-126); Anion Gap 10 mmol/L (4-12); Aspartate Amino Transferase 25 U/L (14-36); Blood Urea Nitrogen 17 mg/dL (7-17); CRP 5.9 mg/dL (<1.0); Calcium 8.9 mg/dL (8.4-10.2); Carbon Dioxide 19 mmol/L (22-30); Chloride 104 mmol/L (98-107); Estimated CRCL calculation 66 ml/min; Estimated Glomerular Filt Rate > 60; Glucose 78 mg/dL (65-110); Sodium 133 mmol/L (137-145)
[2025-02-05 09:36] LABS: Add Urine Microscopic? YES; Appearance Urine Clear (Clear); Bacteria Urine None Seen /hpf; Bilirubin Urine 2+ (Negative); Blood Urine Negative (Negative); Color Urine Dark Yellow (Yellow); Glucose Urine UA Negative (Negative); Ketones Urine 1+ mg/dL (Negative); Leukocyte Esterase Ur Trace LEU/UL (Negative); Mucus Urine Present /lpf; Need Manual Microscopic Reviewed; Nitrate Urine Negative (Negative); Protein Urine 1+ mg/dL (Negative); Specific Grav Ur 1.026 (1.001-1.035); Squamous Epithelial Cell Urine None Seen /hpf (Few); WBC Urine 0-5 /hpf (0-3)
[2025-02-05 10:33] LABS: Erythrocyte Sedimentation Rate 64 mm/hr (0-20)
--- NOTE | 2025-02-05 14:56 | ED.GENADULT ---
HPI - General Adult General Chief complaint: Dizziness Stated complaint: lupus/RA flare up Time Seen by Provider: 02/05/25 07:07 History of Present Illness HPI narrative: Patient is a 69-year-old female who presents ER with reports of feeling lightheaded and fatigued. Ongoing over last week. She thinks she is having and rheumatoid arthritis flare. She has noticed new bruising along her left posterior thigh and the right anterior thigh. Denies any trauma. Reports she does not have history of spontaneous bleeding. She does not think she even sat down hard. Related Data Home Medications ?Medication ?Instructions ?Recorded ?Confirmed ?Last Taken ?Type aspirin 81 mg chewable tablet 81 mg PO DAILY 09/26/20 11/25/24 Unknown History (Inder Chewable Low Dose Aspirin) cholecalciferol (vitamin D3) 50 50 mcg PO DAILY 09/17/22 11/25/24 Unknown History mcg (2,000 unit) capsule (Vitamin D3) hydroxychloroquine 200 mg tablet 200 mg PO BID 05/23/23 11/25/24 Unknown History mecobalamin (vitamin B12) 1,000 1,000 mcg sublingual DAILY 05/23/23 11/25/24 Unknown History mcg disintegrating tablet,sublingual folic acid 1 mg tablet 1 mg PO DAILY 11/21/23 11/25/24 Unknown History methotrexate sodium 2.5 mg tablet 7.5 mg PO WEEKLY 11/21/23 11/25/24 Unknown History diphenhydramine 25 1 tablet PO QHS PRN 05/25/24 11/25/24 Unknown History mg-acetaminophen 500 mg tablet (Tylenol PM Extra Strength) Allergies Allergy/AdvReac Type Severity Reaction Status Date / Time [id number] Reductase AdvReac Weakness Verified 02/05/25 07:33 Inhibitor Review of Systems Review of Systems: All systems reviewed & are unremarkable except as noted in HPI and below Constitutional: Constitutional: Reports no additional constitutional complaints ENT: Reports system reviewed and no additional complaints, except as documented Cardiovascular: Cardiovascular: Reports no additional cardiovascular complaints Respiratory: Respiratory: Reports no additional respiratory complaints Gastrointestinal: Gastrointestinal: Reports no additional gastrointestinal complaints Musculoskeletal: Musculoskeletal: Reports no additional musculoskeletal complaints [facility] Past Medical History Medical History (Updated 02/05/25 @ 18:02 by Felipe Hernandez MD) BMI 31.0-31.9,adult Osteoporosis screening declined Breast cancer screening declined Colon cancer screening declined Abnormal EKG Murmur BMI 33.0-33.9,adult Depression BMI 30.0-30.9,adult B12 deficiency Locking finger joint Rheumatoid arthritis Discoid lupus erythematosus Iron deficiency anemia Vitamin D deficiency Elevated fasting glucose Hyperlipidemia Anemia Skin abnormalities Encounter to establish care HTN (hypertension) H/O headache Intractable low back pain Statin myopathy Inflammatory arthritis KO positive Anxiety Surgical History Surgical History S/P lumbar microdiscectomy History of ankle surgery Family History Family History Mother Heart disease Father Brain aneurysm Grandparent Heart disease Social History Social History Smoking status: Current some day smoker Tobacco type: cigarettes Alcohol intake: never Substance use: current Substance use type: marijuana Other substance usage details: gummies and smoking Last use: 02/04/25 Do You Feel Safe in your Home?: Yes Lack of Transportation: No Lack of Food: Never True Current Housing: I Have Housing Concerned About Future Housing: No Difficulty Paying Gas/Electric Bills: No Difficulty Paying for Meds: No Currently Unemployed: No Education: High School Diploma/GED Difficulty w/ Childcare or Family Care: No Spiritual care concerns: No Exam Narrative: GENERAL: Well-appearing, well-nourished, and in no acute distress. HEAD: Normocephalic, atraumatic. ENT: Mucous membranes moist. CHEST: Clear to auscultation. No respiratory distress. HEART: Regular rate and rhythm. Normal peripheral pulses. ABDOMEN: Soft, nontender, nondistended. EXTREMITIES: Normal range of motion. No edema. SKIN: Warm, dry, no rash. Ecchymosis left posterior thigh without significant tenderness, ecchymosis right anterior thigh with yellowing without tenderness. NEURO: Alert and oriented x3. PSYCH: Normal mood and affect. Course Course Emergency Course: Patient is a very difficult stick and required vascular access come down. Labs were significant for anemia with a hemoglobin of 8.0. Given bruising this could be related to large hematoma formation so CT scan ordered to evaluate for significant fluid collection. No significant fluid collection seen. Vital Signs Vital signs: Vital Signs Pulse Rate 60 02/05/25 07:03 Respiratory Rate 16 02/05/25 07:03 Pulse Oximetry 93 02/05/25 07:03 Oxygen Delivery Room Air 02/05/25 07:03 Temperature 97.9 F 02/05/25 17:29 Pulse Rate 62 02/05/25 17:29 Respiratory Rate 18 02/05/25 17:29 Blood Pressure 133/57 L 02/05/25 17:29 Pulse Oximetry 100 02/05/25 17:29 Oxygen Delivery Room Air 02/05/25 17:53 Medical Decision Making Vital Signs Vital Signs: Vital Signs Pulse Rate 60 02/05/25 07:03 Respiratory Rate 16 02/05/25 07:03 Pulse Oximetry 93 02/05/25 07:03 Oxygen Delivery Room Air 02/05/25 07:03 Temperature 97.9 F 02/05/25 17:29 Pulse Rate 62 02/05/25 17:29 Respiratory Rate 18 02/05/25 17:29 Blood Pressure 133/57 L 02/05/25 17:29 Pulse Oximetry 100 02/05/25 17:29 Oxygen Delivery Room Air 02/05/25 17:53 Lab Data 02/05/25 09:04 02/05/25 09:04 Labs: Lab Results 02/05/25 02/05/25 02/05/25 Range/Units 07:10 09:04 09:21 WBC 5.4 (4.5-10.0) K/mm3 RBC 2.61 L (4.2-5.4) M/mm3 Hgb 8.0 L (12.0-15.0) g/dL Hct 25.3 L (37.0-47.0) % MCV 96.9 (80-100) fl MCH 30.7 (26-34) pg MCHC 31.6 L (32-36) g/dl RDW 15.1 H (11.5-14.5) % Plt Count 272 (150-375) k/mm3 MPV 10.0 (7.4-10.4) fl Immature Gran % (Auto) 0.4 (0-0.5) % Neut % (Auto) 70.5 (45.5-73.1) % Lymph % (Auto) 21.9 (18.3-44.2) % [place] % (Auto) 5.4 (2.6-8.5) % Eos % (Auto) 0.7 (0-4.4) % Baso % (Auto) 1.1 (0.2-1.2) % Lymph # (Auto) 1.18 (0.9-3.2) K/mm3 [place] # (Auto) 0.3 (0.1-0.6) K/mm3 Eos # (Auto) 0.0 (0-0.3) K/mm3 Baso # (Auto) 0.1 (0.0-0.1) K/mm3 Abs Immat Gran (auto) 0.02 (0.00-0.031) K/mm3 Absolute Neuts (auto) 3.8 (1.3-6.7) K/mm3 Absolute Nucleated RBC 0.000 (0.0-0.012) K/mm3 Nucleated RBC % 0.0 (0.0-0.2) % ESR 64 H (0-20) mm/hr PT 14.9 H (11.1-14.7) Seconds INR 1.2 APTT 24.4 (22.3-36.8) Seconds Sodium 133 L (137-145) mmol/L Potassium 4.0 (3.4-5.0) mmol/L Chloride 104 (98-107) mmol/L Carbon Dioxide 19 L (22-30) mmol/L Anion Gap 10 (4-12) mmol/L BUN 17 (7-17) mg/dL Creatinine 0.80 (0.7-1.0) mg/dL Estim Creat Clear Calc 66 ml/min Estimated GFR > 60 (59 - ) Glucose 78 (65-110) mg/dL POC Capillary Glucose 82 (65-105) mg/dl Calcium 8.9 (8.4-10.2) mg/dL Total Bilirubin 2.0 H (0.2-1.3) mg/dL AST 25 (14-36) U/L ALT 16 (6-35) U/L Alkaline Phosphatase 57 (38-126) U/L C-Reactive Protein 5.9 H (<1.0) mg/dL Total Protein 6.0 L (6.3-8.2) g/dL Albumin 3.6 (3.5-5.1) g/dL Urine Color Dark yellow (Yellow) Urine Appearance Clear (Clear) Urine pH 6.0 (5.0-9.0) Ur Specific [place] 1.026 (1.001-1.035) Urine Protein 1+ H (Negative) mg/dL Urine Glucose (UA) Negative (Negative) mg/dL Urine Ketones 1+ H (Negative) mg/dL Ur Blood (Man) Negative (Negative) Urine Nitrate Negative (Negative) Urine Bilirubin 2+ H (Negative) Urine Urobilinogen 1.0 (<2.0) mg/dL Add Ur Microanalysis Reviewed Leukocyte Esterase Rfl Trace H (Negative) MILLY/UL Urine RBC 6-10 H (0-2) /hpf Urine WBC 0-5 (0-3) /hpf Ur Squamous Epith Cells None seen (Few) /hpf Urine Bacteria None seen /hpf Urine Casts 3-5 Urine Mucus Present /lpf Blood Type O Negative Antibody Screen Negative Imaging Data Radiologist's impression: ITS Impressions Chest X-Ray 02/05/25 08:08 IMPRESSION: 1: NO ACUTE CARDIOPULMONARY DISEASE. Femur CT 02/05/25 14:06 IMPRESSION: No acute osseous abnormality. Fat stranding seen in the lower femoral area laterally, medially and anteriorly with focal hematoma seen medially. Femur CT 02/05/25 14:15 IMPRESSION: No acute osseous abnormality. No significant hematoma seen. Aorta w/Runoff CTA 02/05/25 14:35 IMPRESSION: Severe narrowing of the distal left SFA of about 70% with about 50% in the proximal right SFA. Clinical correlation and further evaluation advised. Edema in the plantar aspect of the foot bilaterally with edema in the area of the right knee medially. Clinical correlation and follow-up advised. Right inguinal bowel containing hernia. Large gallbladder stone. Discharge Plan Discharge Clinical Impression: Dizziness, Anemia, Contusion of leg Patient Disposition: Still a Patient Condition: Stable
--- NOTE | 2025-02-05 15:15 | PC.NURSE ---
Pt states she is still dizzy and nauseous, EDP made aware
[2025-02-05] MEDS: MECLIZINE HCL 25 MG TABLET PO (16:13)
[2025-02-05] MEDS: ONDANSETRON INJ 4 MG/2 ML VIAL IV PUSH ×2 (16:14→23:42)
--- NOTE | 2025-02-05 17:30 | ADMGEN ---
This patient, Belen Chapman, was admitted to Medical Room 341-01. Patient/family oriented to hospital policies and general routines including ID bracelet, bed and alarms, visiting hours, pain management, procedures, bathroom and other care routines, personal items, smoking policy, room service/diet, and visiting hours. Information on how to activate the Rapid Response Team has been discussed. Patient/Family are encouraged to report perceived risks to care and to ask questions if they do not understand what they are told or what they should do.
[2025-02-05] MEDS: SODIUM CHLORIDE 0.9% IV 1,000 ML 125 ML IV CONT (18:28)
--- NOTE | 2025-02-05 20:38 | P.HP_ITS ---
H&P: HPI History of Present Illness Date/Time: 02/05/25 20:38 Chief Complaint: Dizziness nausea and fatigue Narrative: Ms. Chapman is a 69-year-old female with a history of hypertension could B12 deficiency, iron deficiency anemia, hyperlipidemia, statin myopathy, rheumatoid arthritis who presents with complaint of a few weeks of fatigue nausea and dizziness. She reports this all started when her rheumatoid arthritis flared up. Usually she has joints in the right hand which become swollen painful and have large bruising. This time, it was around both of her knees and thighs. She contacted her warehouse operator Dr. Chandra then per her on prednisone. She has been taking her folic acid, vitamin B12 and iron pills. She is still taking methotrexate for the rheumatoid arthritis. It got worse ove r the last few days so she presented to [place] ER on 02/05/2025. ER evaluation demonstrates a hemoglobin of 8 whereas it was 15.6 only 2 months prior. INR 1.2, platelets 272, CRP 5.9, ESR 64. Head CT with no acute findings, CTA aorta with narrowing of distal left SFA and proximal right SFA. Left femur CT unremarkable. Right femur CT with fat stranding in the lower femoral area lateral medially and anteriorly with focal hematoma seen medially. She was given normal saline 2 L bolus, Antivert 25 mg x 1, Zofran 4 mg IV x1. Review of Systems Review of Systems: All systems reviewed & are unremarkable except as noted in HPI and below (HPI) [facility] Past Medical History Medical History (Updated 02/05/25 @ 18:02 by Felipe Hernandez MD) BMI 31.0-31.9,adult Osteoporosis screening declined Breast cancer screening declined Colon cancer screening declined Abnormal EKG Murmur BMI 33.0-33.9,adult Depression BMI 30.0-30.9,adult B12 deficiency Locking finger joint Rheumatoid arthritis Discoid lupus erythematosus Iron deficiency anemia Vitamin D deficiency Elevated fasting glucose Hyperlipidemia Anemia Skin abnormalities Encounter to establish care HTN (hypertension) H/O headache Intractable low back pain Statin myopathy Inflammatory arthritis KO positive Anxiety Surgical History Surgical History S/P lumbar microdiscectomy History of ankle surgery Family History Family History Mother Heart disease Father Brain aneurysm Grandparent Heart disease Social History Social History Smoking status: Current some day smoker Tobacco type: cigarettes Alcohol intake: never Substance use: current Substance use type: marijuana Other substance usage details: gummies and smoking Last use: 02/04/25 Do You Feel Safe in your Home?: Yes Lack of Transportation: No Lack of Food: Never True Current Housing: I Have Housing Concerned About Future Housing: No Difficulty Paying Gas/Electric Bills: No Difficulty Paying for Meds: No Currently Unemployed: No Education: High School Diploma/GED Difficulty w/ Childcare or Family Care: No Spiritual care concerns: No Meds Home Medications and Allergies Home Medications ?Medication ?Instructions ?Recorded ?Confirmed ?Type aspirin 81 mg chewable tablet 81 mg PO DAILY 09/26/20 02/05/25 History (Inder Chewable Low Dose Aspirin) cholecalciferol (vitamin D3) 50 50 mcg PO DAILY 09/17/22 02/05/25 History mcg (2,000 unit) capsule (Vitamin D3) gabapentin 300 mg capsule 300 mg PO DIRECTED #120 tabs 10/24/22 02/05/25 Rx hydroxychloroquine 200 mg tablet 200 mg PO BID 05/23/23 02/05/25 History mecobalamin (vitamin B12) 1,000 1,000 mcg sublingual DAILY 05/23/23 02/05/25 History mcg disintegrating tablet,sublingual folic acid 1 mg tablet 1 mg PO DAILY 11/21/23 02/05/25 History methotrexate sodium 2.5 mg tablet 7.5 mg PO WEEKLY 11/21/23 02/05/25 History sertraline 100 mg tablet (Zoloft) 100 mg PO . b.i.d. #180 tabs 03/05/24 02/05/25 Rx ferrous sulfate 325 mg (65 mg 325 mg PO .3x/week #90 tabs 05/04/24 02/05/25 Rx iron) tablet diphenhydramine 25 1 tablet PO QHS PRN pain 05/25/24 02/05/25 History mg-acetaminophen 500 mg tablet (Tylenol PM Extra Strength) amlodipine 5 mg tablet 5 mg PO BID #180 tabs 10/04/24 02/05/25 Rx metoprolol tartrate 50 mg tablet 50 mg PO BID #180 tabs 02/03/25 02/05/25 Rx Allergies Allergy/AdvReac Type Severity Reaction Status Date / Time [id number] Reductase AdvReac Weakness Verified 02/05/25 07:33 Inhibitor Vital Signs Vital Signs - 24 hr 02/05/25 07:03 02/05/25 07:39 02/05/25 07:40 Temperature Pulse Rate 60 59 L 60 Respiratory Rate 16 Blood Pressure 126/64 116/52 L Pulse Oximetry 93 Oxygen Delivery Room Air 02/05/25 07:40 02/05/25 09:12 02/05/25 10:38 Temperature 97.7 F Pulse Rate 88 57 L 62 Respiratory Rate 13 15 Blood Pressure 110/50 L 131/44 L 112/88 Pulse Oximetry 100 96 Oxygen Delivery 02/05/25 12:29 02/05/25 15:12 02/05/25 15:55 Temperature Pulse Rate 65 80 65 Respiratory Rate 18 19 19 Blood Pressure 133/59 L 155/46 H 132/55 L Pulse Oximetry 100 100 100 Oxygen Delivery 02/05/25 16:46 02/05/25 17:12 02/05/25 17:29 Temperature 97.5 F L 97.9 F Pulse Rate 61 68 62 Respiratory Rate 14 16 18 Blood Pressure 134/45 L 156/45 H 133/57 L Pulse Oximetry 100 100 100 Oxygen Delivery 02/05/25 17:53 Temperature Pulse Rate Respiratory Rate Blood Pressure Pulse Oximetry Oxygen Delivery Room Air Exam Const: General: comfortable and no acute distress Other: A&O x3 HENMT: Mouth: Yes moist mucous membranes Eyes: Pupils: Equal, round and reactive pupils present Neck: Neck: supple Resp: Effort & Inspection: normal respiratory effort Auscultation: clear to auscultation bilaterally Cardio: Rate: regular rate Rhythm: regular rhythm Heart sounds: no murmurs GI: GI Palp: Yes Soft to palpation and No Tenderness to palpation present (GI) Extrem: General: no edema Other: Ecchymosis proximal right lower extremity. H&P: Results Labs Labs: Short CBC 02/05/25 Range/Units 09:04 WBC 5.4 (4.5-10.0) K/mm3 Hgb 8.0 L (12.0-15.0) g/dL Hct 25.3 L (37.0-47.0) % Plt Count 272 (150-375) k/mm3 BMP 02/05/25 09:04 Sodium 133 L Potassium 4.0 Chloride 104 Carbon Dioxide 19 L BUN 17 Creatinine 0.80 Glucose 78 Calcium 8.9 Liver Function 02/05/25 Range/Units 09:04 Total Bilirubin 2.0 H (0.2-1.3) mg/dL AST 25 (14-36) U/L ALT 16 (6-35) U/L Alkaline Phosphatase 57 (38-126) U/L Albumin 3.6 (3.5-5.1) g/dL Urine 02/05/25 Range/Units 09:21 Urine Color Dark yellow (Yellow) Urine Appearance Clear (Clear) Urine pH 6.0 (5.0-9.0) Ur Specific [place] 1.026 (1.001-1.035) Urine Protein 1+ H (Negative) mg/dL Urine Glucose (UA) Negative (Negative) mg/dL Assessment and Plan Assessment and plan (1) Rheumatoid arthritis: Code(s): M06.9 - Rheumatoid arthritis, unspecified Status: Acute (2) Anemia: Code(s): D64.9 - Anemia, unspecified Status: Acute Plan Ms. Chapman is a 69-year-old female with a history of hypertension could B12 deficiency, iron deficiency anemia, hyperlipidemia, statin myopathy, rheumatoid arthritis who presents with complaint of a few weeks of fatigue nausea and dizziness. She reports this all started when her rheumatoid arthritis flared up. Usually she has joints in the right hand which become swollen painful and have large bruising. This time, it was around both of her knees and thighs. She contacted her warehouse operator Dr. Chandra then per her on prednisone. She has been taking her folic acid, vitamin B12 and iron pills. She is still taking methotrexate for the rheumatoid arthritis. It got worse over the last few days so she presented to [place] ER on 02/05/2025. ER evaluation demonstrates a hemoglobin of 8 whereas it was 15.6 only 2 months prior. INR 1.2, platelets 272, CRP 5.9, ESR 64. Head CT with no acute findings, CTA aorta with narrowing of distal left SFA and proximal right SFA. Left femur CT unremarkable. Right femur CT with fat stranding in the lower femoral area lateral medially and anteriorly with focal hematoma seen medially. She was given normal saline 2 L bolus, Antivert 25 mg x 1, Zofran 4 mg IV x1. ----- Repeat CBC in the morning along with iron panel and ferritin, folic acid and B12, haptoglobin and LDH. Her anemia is likely a combination of her methotrexate use, ecchymosis and anemia of chronic disease. Denies any change in stool color, no blood per rectum. No vomiting. Continue normal saline infusion. Ambulate with assistance, fall precautions. Continue folic acid B12 and iron. Hold BLOWING ENGINEER aspirin. Patient declines PT/OT. She has also not eaten in 2 days due to the nausea and she declines dietary supplement. Reporting, she just wants to the dizziness goes away. Consult Hematology. ----- SCDs. Full code. Hospitalist MIPS Advance Care Plan I have confirmed that the patient's Advanced Care Plan is present, code status is documented, or surrogate decision maker is listed in patient medical record.: Yes Medication Reconciliation I have utilized all available resources to obtain, update and review the patients current medications (includes all prescriptions, OTC, herbals, cannabis, and nutritional supplements).: Yes
[2025-02-05] MEDS: MECLIZINE HCL 12.5 MG TABLET PO (22:04)
[2025-02-05] MEDS: SERTRALINE HCL 50 MG TABLET 100 MG PO (22:04)
[2025-02-06] VITALS (15 sets, daily range): BP systolic 115–141; BP diastolic 44–69; PULSE 73–115; RESP 16–18; TEMP 36.5–37.4; O2SAT 98–100
[2025-02-06] MEDS: SODIUM CHLORIDE 0.9% IV 1,000 ML 125 ML IV CONT ×3 (01:45→21:17)
[2025-02-06] MEDS: ONDANSETRON INJ 4 MG/2 ML VIAL IV PUSH (05:05)
[2025-02-06 05:51] LABS: Basophils Absolute Auto 0.1 K/mm3 (0.0-0.1); Eosinophils Percent Auto 0.4 % (0-4.4); Hemoglobin 7.2 g/dL (12.0-15.0); Immature Granulocyte Absolute 0.03 K/mm3 (0.00-0.031); Immature Granulocyte Percent A 0.4 % (0-0.5); Lymphocytes Absolute Auto 1.04 K/mm3 (0.9-3.2); Lymphocytes Percent Auto 15.3 % (18.3-44.2); Mean Corpuscular HGB Conc 31.3 g/dl (32-36); Mean Corpuscular Hemoglobin 30.4 pg (26-34); Monocytes Absolute Auto 0.3 K/mm3 (0.1-0.6); Monocytes Percent Auto 4.1 % (2.6-8.5); Neutrophils Absolute Auto 5.4 K/mm3 (1.3-6.7); Neutrophils Percent Auto 78.8 % (45.5-73.1); Platelet Count Result 266 k/mm3 (150-375); Red Blood Count 2.37 M/mm3 (4.2-5.4); Red Cell Distribution Width 15.1 % (11.5-14.5); White Blood Count 6.8 K/mm3 (4.5-10.0)
[2025-02-06 06:00] LABS: Iron 43 ug/dL (37-170)
[2025-02-06 06:03] LABS: Anion Gap 14 mmol/L (4-12); Blood Urea Nitrogen 9 mg/dL (7-17); Calcium 8.7 mg/dL (8.4-10.2); Carbon Dioxide 15 mmol/L (22-30); Chloride 106 mmol/L (98-107); Estimated CRCL calculation 71 ml/min; Estimated Glomerular Filt Rate > 60; Glucose 88 mg/dL (65-110); Lactate Dehydrogenase 229 U/L (120-246); Magnesium 1.8 mg/dL (1.6-2.3); Potassium 3.4 mmol/L (3.4-5.0); Sodium 135 mmol/L (137-145)
[2025-02-06 06:09] LABS: Percent Iron Saturation 17 % (20-50)
[2025-02-06 07:11] LABS: Folic Acid 13.4 ng/mL (2.76->20); Vitamin B12 > 1000.0 pg/mL (239-931)
[2025-02-06] MEDS: GABAPENTIN 300 MG CAPSULE PO ×3 (08:43→17:09)
[2025-02-06] MEDS: PROCHLORPERAZINE EDISYLATE 10 MG/2 ML VIAL IV PUSH ×2 (08:43→17:09)
[2025-02-06] MEDS: FOLIC ACID 1 MG TABLET PO (08:43)
[2025-02-06] MEDS: SERTRALINE HCL 50 MG TABLET 200 MG PO (08:44)
[2025-02-06] MEDS: MECLIZINE HCL 12.5 MG TABLET PO ×4 (08:45→21:17)
[2025-02-06] MEDS: HYDROXYCHLOROQUINE SULFATE 200 MG TABLET PO ×2 (08:45→17:08)
[2025-02-06 14:11] LABS: Hematocrit 22.4 % (37.0-47.0); Mean Corpuscular HGB Conc 31.3 g/dl (32-36); Mean Corpuscular Hemoglobin 30.7 pg (26-34); Mean Corpuscular Volume 98.2 fl (80-100); Platelet Count Result 198 k/mm3 (150-375); Red Blood Count 2.28 M/mm3 (4.2-5.4); Red Cell Distribution Width 15.2 % (11.5-14.5); White Blood Count 5.8 K/mm3 (4.5-10.0)
[2025-02-06 14:30] LABS: Anion Gap 13 mmol/L (4-12); Blood Urea Nitrogen 8 mg/dL (7-17); Calcium 8.8 mg/dL (8.4-10.2); Carbon Dioxide 15 mmol/L (22-30); Chloride 106 mmol/L (98-107); Estimated CRCL calculation 73 ml/min; Estimated Glomerular Filt Rate > 60; Glucose 75 mg/dL (65-110); Potassium 3.7 mmol/L (3.4-5.0); Sodium 134 mmol/L (137-145)
--- NOTE | 2025-02-06 16:50 | WPDGICN ---
Assessment and Plan Assessment and plan (1) Anemia: Code(s): D64.9 - Anemia, unspecified Status: Acute Assessment and Plan: no overt gib, she has b/l large hematoma in legs which could explain part of symptom, also using MTX that can cause anemia patient does not want to have scopes at this point of time agree with cost reduction engineer consult she has been taking aleve daily for almost 2 weeks, recommend to discontinue as she could have pud, also use ppi daily has been complaining of nausea- she says that is better and does not want to have egd if she changes her mind then advised to contact our office will follow as needed (2) Contusion of leg: Code(s): S80.10XA - Contusion of unspecified lower leg, initial encounter Status: Acute Assessment and Plan: large bruises (3) Rheumatoid arthritis: Code(s): M06.9 - Rheumatoid arthritis, unspecified Status: Acute (4) Dizziness: Code(s): R42 - Dizziness and giddiness Status: Acute GI Consult Note Consult date/time: 02/06/25 16:50 Reason for consult: anemia, nausea HPI: Belen Chapman is a 69 year old female with history of hypertension, iron deficiency anemia (2022 hgb 8 but repeat 11/2024 normal), hyperlipidemia, statin myopathy, rheumatoid arthritis diagnosed last year and using MTX. She is here with few weeks of fatigue, nausea and dizziness. Recently with rheumatoid arthritis flared up with more joint pain, her jewelry designer started on prednisone. More discomfort and also noted b/l large bruises in both legs. ER showed hemoglobin of 8 whereas it was 15.6 only 2 months prior. INR 1.2, platelets 272, CRP 5.9, ESR 64[address] Head CT with no acute findings, CTA aorta with narrowing of distal left SFA and proximal right SFA. Left femur CT unremarkable. Right femur CT with fat stranding in the lower femoral area lateral medially and anteriorly with focal hematoma seen medially. No recent scopes, denies overt gib. Review of Systems Constitutional: Constitutional: Reports fatigue Eyes: Eyes: Denies blurry vision ENT: Reports Normal hearing present Cardiovascular: Cardiovascular: Denies chest pain Respiratory: Respiratory: Denies cough Gastrointestinal: Gastrointestinal: Denies abdominal pain Genitourinary: Genitourinary: Denies dysuria Musculoskeletal: Musculoskeletal: Reports arthralgias and Reports joint swelling Integumentary/Breasts: Skin/Breast: Reports unusual bruising Neurologic: Denies Abnormal speech present Psychiatric: Psychiatric: Denies behavioral changes [facility] Past Medical History Medical History (Updated 02/05/25 @ 18:02 by Felipe Hernandez MD) BMI 31.0-31.9,adult Osteoporosis screening declined Breast cancer screening declined Colon cancer screening declined Abnormal EKG Murmur BMI 33.0-33.9,adult Depression BMI 30.0-30.9,adult B12 deficiency Locking finger joint Rheumatoid arthritis Discoid lupus erythematosus Iron deficiency anemia Vitamin D deficiency Elevated fasting glucose Hyperlipidemia Anemia Skin abnormalities Encounter to establish care HTN (hypertension) H/O headache Intractable low back pain Statin myopathy Inflammatory arthritis KO positive Anxiety Surgical History Surgical History S/P lumbar microdiscectomy History of ankle surgery Family History Family History Mother Heart disease Father Brain aneurysm Grandparent Heart disease Social History Social History Smoking status: Current some day smoker Tobacco type: cigarettes Alcohol intake: never Substance use: current Substance use type: marijuana Other substance usage details: gummies and smoking Last use: 02/04/25 Do You Feel Safe in your Home?: Yes Lack of Transportation: No Lack of Food: Never True Current Housing: I Have Housing Concerned About Future Housing: No Difficulty Paying Gas/Electric Bills: No Difficulty Paying for Meds: No Currently Unemployed: No Education: High School Diploma/GED Difficulty w/ Childcare or Family Care: No Spiritual care concerns: No Meds Home Medications and Allergies Home Medications ?Medication ?Instructions ?Recorded ?Confirmed ?Type aspirin 81 mg chewable tablet 81 mg PO DAILY 09/26/20 02/05/25 History (Inder Chewable Low Dose Aspirin) cholecalciferol (vitamin D3) 50 50 mcg PO DAILY 09/17/22 02/05/25 History mcg (2,000 unit) capsule (Vitamin D3) gabapentin 300 mg capsule 300 mg PO DIRECTED #120 tabs 10/24/22 02/05/25 Rx hydroxychloroquine 200 mg tablet 200 mg PO BID 05/23/23 02/05/25 History mecobalamin (vitamin B12) 1,000 1,000 mcg sublingual DAILY 05/23/23 02/05/25 History mcg disintegrating tablet,sublingual folic acid 1 mg tablet 1 mg PO DAILY 11/21/23 02/05/25 History methotrexate sodium 2.5 mg tablet 7.5 mg PO WEEKLY 11/21/23 02/05/25 History sertraline 100 mg tablet (Zoloft) 100 mg PO . b.i.d. #180 tabs 03/05/24 02/05/25 Rx ferrous sulfate 325 mg (65 mg 325 mg PO .3x/week #90 tabs 05/04/24 02/05/25 Rx iron) tablet diphenhydramine 25 1 tablet PO QHS PRN pain 05/25/24 02/05/25 History mg-acetaminophen 500 mg tablet (Tylenol PM Extra Strength) amlodipine 5 mg tablet 5 mg PO BID #180 tabs 10/04/24 02/05/25 Rx metoprolol tartrate 50 mg tablet 50 mg PO BID #180 tabs 02/03/25 02/05/25 Rx Allergies Allergy/AdvReac Type Severity Reaction Status Date / Time [id number] Reductase AdvReac Weakness Verified 02/05/25 07:33 Inhibitor Vital Signs Vital Signs - 24 hr 02/05/25 17:12 02/05/25 17:29 02/05/25 17:53 Temperature 97.5 F L 97.9 F Pulse Rate 68 62 Respiratory Rate 16 18 Blood Pressure 156/45 H 133/57 L Pulse Oximetry 100 100 Oxygen Delivery Room Air Fraction of Inspired Oxygen 02/05/25 21:11 02/05/25 22:00 02/05/25 22:00 Temperature Pulse Rate 67 64 Respiratory Rate 20 Blood Pressure Pulse Oximetry 97 Oxygen Delivery Room Air Room Air Fraction of Inspired Oxygen 02/05/25 22:12 02/06/25 00:00 02/06/25 04:51 Temperature 97.6 F Pulse Rate 63 73 85 Respiratory Rate 18 Blood Pressure 136/45 L Pulse Oximetry 100 Oxygen Delivery Fraction of Inspired Oxygen 02/06/25 06:00 02/06/25 06:00 02/06/25 06:05 Temperature 98.1 F 98.1 F 98.4 F Pulse Rate 79 79 75 Respiratory Rate 18 18 18 Blood Pressure 141/64 H 141/64 H 140/49 L Pulse Oximetry 100 100 100 Oxygen Delivery Fraction of Inspired Oxygen 02/06/25 06:12 02/06/25 08:00 02/06/25 08:00 Temperature 97.7 F Pulse Rate 115 H 81 Respiratory Rate 18 Blood Pressure 115/69 Pulse Oximetry 100 Oxygen Delivery Room Air Fraction of Inspired Oxygen 02/06/25 12:00 02/06/25 14:00 02/06/25 16:00 Temperature 98.3 F Pulse Rate 83 85 78 Respiratory Rate 16 Blood Pressure 134/50 L Pulse Oximetry 100 Oxygen Delivery Fraction of Inspired Oxygen Exam Const: General: comfortable and no acute distress Other: A&O x3 HENMT: Mouth: Yes moist mucous membranes Eyes: Sclera: sclerae normal Neck: Neck: supple Resp: Effort & Inspection: normal respiratory effort Auscultation: clear to auscultation bilaterally Cardio: Rate: regular rate Rhythm: regular rhythm Heart sounds: no murmurs GI: GI Palp: Yes Soft to palpation and No Tenderness to palpation present (GI) Auscultation: normal bowel sounds Skin: Other: bruises legs Neuro: Speech: normal speech Motor exam (neuro): 5/5 motor strength present throughout Extrem: General: no edema Other: Ecchymosis both legs Psych: Mental Status: mental status grossly normal Results Labs 02/06/25 13:57 02/06/25 13:57 Labs: Short CBC 02/06/25 02/06/25 Range/Units 05:28 13:57 WBC 6.8 5.8 (4.5-10.0) K/mm3 Hgb 7.2 L 7.0 L (12.0-15.0) g/dL Hct 23.0 L 22.4 L (37.0-47.0) % Plt Count 266 198 (150-375) k/mm3 BMP 02/06/25 02/06/25 05:28 13:57 Sodium 135 L 134 L Potassium 3.4 3.7 Chloride 106 106 Carbon Dioxide 15 L 15 L BUN 9 D 8 Creatinine 0.74 0.72 Glucose 88 75 Calcium 8.7 8.8
[2025-02-06] MEDS: CHOLECALCIFEROL (VITAMIN D3) 25 MCG (1,000 UNITS) TABLET 50 MCG PO (17:08)
[2025-02-06] MEDS: CYANOCOBALAMIN 1,000 MCG TABLET 1000 MCG PO (17:08)
[2025-02-06] MEDS: FERROUS SULFATE 325 MG TABLET DR BY MOUTH (17:09)
--- NOTE | 2025-02-06 20:25 | P.PNIM_ITS ---
Progress Note: A&P Assessment and Plan (1) Rheumatoid arthritis: Code(s): M06.9 - Rheumatoid arthritis, unspecified Status: Acute Assessment and Plan: Steroids and methotrexate on hold (2) Anemia: Code(s): D64.9 - Anemia, unspecified Status: Acute Assessment and Plan: Watch cbc yulisa Today hb is 7 ok to tranfuse one unit of blood ? secondary to hematoma collection in legs No need for scopes per GI MD consult hematology md yulisa Plan ----- SCDs. Full code. Subjective Date/time seen: 02/06/25 20:25 Interval history: pt complains of intractable nausea and vomiting pt admitted with fatigue and nausea recent RA flare up pt currently having large hematoma on her thighs no need for scopes presently as per GI MD watch hb and discharge yulisa hb is 7 transfuse 1 unit of blood today Review of Systems Review of Systems: bruising of thighs intractable vomiting Exam Const: General: comfortable and no acute distress Other: A&O x3 HENMT: Mouth: Yes moist mucous membranes Eyes: Pupils: Equal, round and reactive pupils present Neck: Neck: supple Resp: Effort & Inspection: normal respiratory effort Auscultation: clear to auscultation bilaterally Cardio: Rate: regular rate Rhythm: regular rhythm Heart sounds: no murmurs Neuro: Cranial nerves: Yes Equal, round and reactive pupils present Extrem: General: no edema Other: Ecchymosis proximal right lower extremity. Objective Data Vital Signs Vital Signs: Vital Signs - 24 hr 02/05/25 21:11 02/05/25 22:00 02/05/25 22:00 Temperature Pulse Rate 67 64 Respiratory Rate 20 Blood Pressure Pulse Oximetry 97 Oxygen Delivery Room Air Room Air Fraction of Inspired Oxygen 21 02/05/25 22:12 02/06/25 00:00 02/06/25 04:51 Temperature 36.4 C Pulse Rate 63 73 85 Respiratory Rate 18 Blood Pressure 136/45 L Pulse Oximetry 100 Oxygen Delivery Fraction of Inspired Oxygen 02/06/25 06:00 02/06/25 06:00 02/06/25 06:05 Temperature 36.7 C 36.7 C 36.9 C Pulse Rate 79 79 75 Respiratory Rate 18 18 18 Blood Pressure 141/64 H 141/64 H 140/49 L Pulse Oximetry 100 100 100 Oxygen Delivery Fraction of Inspired Oxygen 02/06/25 06:12 02/06/25 08:00 02/06/25 08:00 Temperature 36.5 C Pulse Rate 115 H 81 Respiratory Rate 18 Blood Pressure 115/69 Pulse Oximetry 100 Oxygen Delivery Room Air Fraction of Inspired Oxygen 02/06/25 12:00 02/06/25 14:00 02/06/25 16:00 Temperature 36.8 C Pulse Rate 83 85 78 Respiratory Rate 16 Blood Pressure 134/50 L Pulse Oximetry 100 Oxygen Delivery Fraction of Inspired Oxygen 02/06/25 19:58 Temperature 37.4 C Pulse Rate 88 Respiratory Rate 17 Blood Pressure 127/53 L Pulse Oximetry 98 Oxygen Delivery Fraction of Inspired Oxygen Intake/Output Intake/Output: Intake & Output 02/03/25 02/04/25 02/05/25 02/06/25 23:59 23:59 23:59 23:59 Intake Total 1999 3340.4 Output Total 330 1500 Balance 1670 1840.4 Meds/Results Medications: Active Medications Generic Name Dose Route Start Last Admin Trade Name Freq PRN Reason Stop Dose Admin Acetaminophen 650 mg 02/05/25 16:26 Acetaminophen 325 Mg Tablet PO Q4H PRN Mild Pain (1-3) or Fever Hydrocodone Bitart/Acetaminophen 1 tab 02/05/25 16:26 Hydrocodone/Acetaminophen (*Crx) 5-325 Mg Tablet PO Q4H PRN Pain Rated 4-6 Cyanocobalamin 1,000 mcg 02/06/25 17:00 02/06/25 17:08 Cyanocobalamin 1,000 Mcg Tablet PO 1,000 mcg Q24H BRIJESH Administration Ferrous Sulfate 325 mg 02/06/25 17:00 02/06/25 17:09 Ferrous Sulfate [address] BY MOUTH 325 mg [id number] BRIJESH Administration Folic Acid 1 mg 02/06/25 09:00 02/06/25 08:43 Folic Acid 1 Mg Tablet PO 1 mg DAILY BRIJESH Administration Gabapentin 300 mg 02/06/25 09:00 02/06/25 17:09 Gabapentin 300 Mg Capsule PO 300 mg TID BRIJESH Administration Hydroxychloroquine Sulfate 200 mg 02/06/25 09:00 02/06/25 17:08 Hydroxychloroquine Sulfate 200 Mg Tablet PO 200 mg BID BRIJESH Administration Sodium Chloride 1,000 mls @ 125 mls/hr 02/05/25 16:30 02/06/25 13:55 Normal Saline Iv IV CONT 125 mls/hr .Q8H BRIJESH Administration Meclizine HCl 12.5 mg 02/05/25 21:00 02/06/25 17:09 Meclizine Hcl 12.5 Mg Tablet PO 12.5 mg QID BRIJESH Administration Morphine Sulfate 2 mg 02/05/25 16:26 Morphine Sulfate (*Crx) 2 Mg/Ml Inj IV PUSH Q2H PRN Pain Rated 7-10 Prochlorperazine Edisylate 10 mg 02/06/25 08:32 02/06/25 17:09 Prochlorperazine Edisylate 10 Mg/2 Ml Vial IV PUSH 10 mg Q6H PRN Administration Nausea And Vomiting Sertraline HCl 200 mg 02/06/25 09:00 02/06/25 08:44 Sertraline Hcl 50 Mg Tablet PO 200 mg DAILY BRIJESH Administration Vitamin D 50 mcg 02/06/25 17:00 02/06/25 17:08 Cholecalciferol (Vitamin D3) 25 Mcg (1,000 Units) Tablet PO 50 mcg Q24H BRIJESH Administration Radiology Results: ITS Impressions Chest X-Ray 02/05/25 08:08 IMPRESSION: 1: NO ACUTE CARDIOPULMONARY DISEASE. Femur CT 02/05/25 14:15 IMPRESSION: No acute osseous abnormality. No significant hematoma seen. Aorta w/Runoff CTA 02/05/25 14:35 IMPRESSION: Severe narrowing of the distal left SFA of about 70% with about 50% in the proximal right SFA. Clinical correlation and further evaluation advised. Edema in the plantar aspect of the foot bilaterally with edema in the area of the right knee medially. Clinical correlation and follow-up advised. Right inguinal bowel containing hernia. Large gallbladder stone. Head CT 02/05/25 17:23 IMPRESSION: No acute intracranial findings. Labs Labs: Laboratory Results - last 24 hr 02/06/25 02/06/25 05:28 13:57 WBC 6.8 5.8 RBC 2.37 L 2.28 L Hgb 7.2 L 7.0 L Hct 23.0 L 22.4 L MCV 97.0 98.2 MCH 30.4 30.7 MCHC 31.3 L 31.3 L RDW 15.1 H 15.2 H Plt Count 266 198 MPV 10.0 10.0 Immature Gran % (Auto) 0.4 Neut % (Auto) 78.8 H Lymph % (Auto) 15.3 L [place] % (Auto) 4.1 Eos % (Auto) 0.4 Baso % (Auto) 1.0 Lymph # (Auto) 1.04 [place] # (Auto) 0.3 Eos # (Auto) 0.0 Baso # (Auto) 0.1 Abs Immat Gran (auto) 0.03 Absolute Neuts (auto) 5.4 Absolute Nucleated RBC 0.000 Nucleated RBC % 0.0 Sodium 135 L 134 L Potassium 3.4 3.7 Chloride 106 106 Carbon Dioxide 15 L 15 L Anion Gap 14 H 13 H BUN 9 D 8 Creatinine 0.74 0.72 Estim Creat Clear Calc 71 73 Estimated GFR > 60 > 60 Glucose 88 75 Calcium 8.7 8.8 Magnesium 1.8 Iron 43 TIBC 258 L % Saturation 17 L Ferritin 127.00 Lactate Dehydrogenase 229 Vitamin B12 > 1000.0 H Folate 13.4
[2025-02-06 21:17] LABS: Mean Corpuscular HGB Conc 31.8 g/dl (32-36); Mean Corpuscular Hemoglobin 31.1 pg (26-34); Mean Corpuscular Volume 97.8 fl (80-100); Mean Platelet Volume 9.5 fl (7.4-10.4); Platelet Count Result 170 k/mm3 (150-375); Red Blood Count 1.83 M/mm3 (4.2-5.4); Red Cell Distribution Width 15.4 % (11.5-14.5); White Blood Count 4.5 K/mm3 (4.5-10.0)
[2025-02-06 21:19] LABS: Hematocrit 17.9 % (37.0-47.0); Hemoglobin 5.7 g/dL (12.0-15.0)
[2025-02-06 21:26] LABS: Anion Gap 7 mmol/L (4-12); Blood Urea Nitrogen 7 mg/dL (7-17); Calcium 8.3 mg/dL (8.4-10.2); Carbon Dioxide 18 mmol/L (22-30); Chloride 108 mmol/L (98-107); Estimated CRCL calculation 75 ml/min; Estimated Glomerular Filt Rate > 60; Glucose 86 mg/dL (65-110); Potassium 3.3 mmol/L (3.4-5.0); Sodium 133 mmol/L (137-145)
[2025-02-06] MEDS: SODIUM CHLORIDE 0.9% IV 250 ML 30 ML IV CONT (22:10)
[2025-02-07] VITALS (13 sets, daily range): BP systolic 122–151; BP diastolic 47–90; PULSE 75–84; RESP 16–18; TEMP 36.7–37; O2SAT 97–100
[2025-02-07 05:51] LABS: Hematocrit 30.5 % (37.0-47.0); Hemoglobin 9.9 g/dL (12.0-15.0)
[2025-02-07] MEDS: MECLIZINE HCL 12.5 MG TABLET PO ×2 (09:23→12:51)
[2025-02-07] MEDS: HYDROXYCHLOROQUINE SULFATE 200 MG TABLET PO (09:23)
[2025-02-07] MEDS: SERTRALINE HCL 50 MG TABLET 200 MG PO (09:23)
[2025-02-07] MEDS: FOLIC ACID 1 MG TABLET PO (09:23)
[2025-02-07] MEDS: GABAPENTIN 300 MG CAPSULE PO ×2 (09:23→12:51)
--- NOTE | 2025-02-07 12:55 | PM.DS ---
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 secondary to hematoma collection in legs No need for scopes per GI MD pt wants to go home will follow with heamtology on dc DS: Summary Hospital Course Hospital Course: pt complains of intractable nausea and vomiting admitted with fatigue and nausearecent ra flareup pt currently having large hematoma on her thighs no need for scopes as per gi pt transfused one unit if blood ok to dc yulisa Status at Discharge Cognitive/behavioral status at discharge: stable Time Spent with Patient Time attestation: Total time spent providing and/or coordinating discharge services:55 minutes on dc Exam Const: General: comfortable and no acute distress Other: A&O x3 HENMT: Mouth: Yes moist mucous membranes Eyes: Pupils: Equal, round and reactive pupils present Neck: Neck: supple Resp: Effort & Inspection: normal respiratory effort Auscultation: clear to auscultation bilaterally Cardio: Rate: regular rate Rhythm: regular rhythm Heart sounds: no murmurs Neuro: Cranial nerves: Yes Equal, round and reactive pupils present Extrem: General: no edema Other: Ecchymosis proximal right lower extremity. DS: Data Data Completed and Pending Labs on day of discharge: Labs from last 24 hours 02/07/25 02/06/25 02/06/25 05:42 21:11 13:57 WBC 4.5 5.8 RBC 1.83 L 2.28 L Hgb 9.9 L D 5.7 L* 7.0 L Hct 30.5 L 17.9 L* 22.4 L MCV 97.8 98.2 MCH 31.1 30.7 MCHC 31.8 L 31.3 L RDW 15.4 H 15.2 H Plt Count 170 198 MPV 9.5 10.0 Sodium 133 L 134 L Potassium 3.3 L 3.7 Chloride 108 H 106 Carbon Dioxide 18 L 15 L Anion Gap 7 13 H BUN 7 8 Creatinine 0.69 L 0.72 Estim Creat Clear Calc 75 73 Estimated GFR > 60 > 60 Glucose 86 75 Calcium 8.3 L 8.8 Blood Type Antibody Screen Crossmatch 02/05/25 09:04 WBC RBC Hgb Hct MCV MCH MCHC RDW Plt Count MPV Sodium Potassium Chloride Carbon Dioxide Anion Gap BUN Creatinine Estim Creat Clear Calc Estimated GFR Glucose Calcium Blood Type O Negative Antibody Screen Negative Crossmatch See Detail Discharge Plan Discharge Attending physician on discharge: Franca Elder Consulting providers: Mauricio Atkinson; Joaquim Jamil; Deana Lockhart; Antwon Gonsales; Gregg Gould Discharging Clinician: Franca Elder Anticipated Discharge Date/Time: 02/07/25 12:51 Patient Disposition: Home Activity: as tolerated Diet: regular Discharge Instructions: Follow up pts own rheumatology md Patient Instructions: Antibiotic Form Patient Language: Upper Sorbian Stand Alone Forms: General Discharge Information Follow-up/Referrals: Jd Vasquez MD [Physician] - (in 1 months time regarding acute on chronic anemia ) Rachel Maldonado NP [Primary Care Provider] - Discharge Medications: New potassium chloride 20 mEq packet 20 meq PO BID Qty: 20 0RF Continued gabapentin 300 mg capsule 300 mg PO DIRECTED Qty: 120 3RF Rx Instructions: take 600mg QHS for 14 days, if tolerated take 600mg in am, 300 mg at noon and 600mg QHS, if tolerated take 600mg in am 600mg at noon and 600mg QHS hydroxychloroquine 200 mg tablet 200 mg PO BID mecobalamin (vitamin B12) 1,000 mcg tablet,disintegrating 1,000 mcg sublingual DAILY Rx Instructions: place tablet under tongue and allow to dissolve for at least30 secs before swallowing diphenhydramine-acetaminophen [Tylenol PM Extra Strength] 25-500 mg tablet 1 tablet PO QHS PRN (Reason: pain) folic acid 1 mg tablet 1 mg PO DAILY methotrexate sodium 2.5 mg tablet 7.5 mg PO WEEKLY cholecalciferol (vitamin D3) [Vitamin D3] 50 mcg (2,000 unit) Capsule 50 mcg PO DAILY sertraline [Zoloft] 100 mg tablet 100 mg PO . b.i.d. Qty: 180 3RF ferrous sulfate 325 mg (65 mg iron) tablet 325 mg PO .3x/week Qty: 90 3RF amlodipine 5 mg tablet 5 mg PO BID Qty: 180 3RF metoprolol tartrate 50 mg tablet 50 mg PO BID Qty: 180 3RF Held aspirin [Inder Chewable Aspirin] 81 mg tablet,chewable 81 mg PO DAILY Hold Instructions: Resume on 02/11/25. No Action famotidine 40 mg tablet 40 mg PO DAILY Qty: 30 5RF Date of admission: 02/06/25 18:24 Primary Care Provider: Rachel Maldonado Admitting Provider: Angelo Sherman Attending physician on admission: Franca Elder Condition: Stable
[2025-02-08 03:53] LABS: Haptoglobin 97 mg/dL (43-212)
== END 2025-02-07 14:30 | disposition home or self-care (01) | DRG 812 ==
LOC: ANHED 15:15 → ANH3MED 16:56
PROVIDERS: General Practice; Physician Assistant; Admitting Provider Internal Medicine; Emergency Provider Emergency Medicine; PCP Nurse Practitioner Family; Visit Provider Family Medicine
DX: D64.89 Other specified anemias (principal); G72.0 Drug-induced myopathy; M06.9 Rheumatoid arthritis, unspecified; T46.6X5A Adverse effect of antihyperlipidemic and antiarteriosclerotic drugs, initial encounter; I10 Essential (primary) hypertension; D50.9 Iron deficiency anemia, unspecified; E78.5 Hyperlipidemia, unspecified; E53.8 Deficiency of other specified B group vitamins; D63.8 Anemia in other chronic diseases classified elsewhere; D64.81 Anemia due to antineoplastic chemotherapy; T45.1X5A Adverse effect of antineoplastic and immunosuppressive drugs, initial encounter; F17.210 Nicotine dependence, cigarettes, uncomplicated; S80.12XA Contusion of left lower leg, initial encounter; S80.11XA Contusion of right lower leg, initial encounter; L93.0 Discoid lupus erythematosus
CPT/HCPCS: 36415; 36430; 70450; 71046; 73700; 75635; 80048; 80053; 81001; 82607; 82728; 82746; 82948; 83010; 83540; 83550; 83615; 83735; 85014; 85018; 85025; 85027; 85610; 85652; 85730; 86140; 86850; 86900; 86901; 86923; 93005; 96361; 96374; 96375; 96376; 99285; A9270; G0378; J0780; J2405; J7030; J7050; P9016; Q9967